=== PATIENT | female | born 1995 | race Caucasian/White ===

== ENCOUNTER 2017-06-21 03:18 | Inpatient (IN) | payer OTHER ==
[2017-06-21] MEDS: Lactated Ringers 1,000 ML IV SCH ×3 (08:00→19:57)
--- NOTE | 2017-06-21 08:12 | PCM.LDHP ---
L&D History of Present Illness - General Date of Service: 06/21/17 Admit Problem/Dx: Admission Diagnosis/Problem Admission Diagnosis/Problem 06/21/17 08:05 40-1/7 week intrauterine , induction of labor Source of Information: Patient History Limitations: Reports: No Limitations - History of Present Illness Introduction:: History of present illness: Patient is a 21-year-old 1 para 0 white female who is admitted for elective induction of labor at 40-1/7 weeks gestational age. Her due date is 06/20/2016 as based upon a ultrasound done at 12- 5/7 weeks. Dating is supported by a second ultrasound that was done on 2016. Cervix is 2+ centimeters, 90% effaced, -2 station, cephalic presentation, mid position to posterior position, very soft. Induction with artificial rupture membranes/possible Pitocin discussed with patient. She appears to understand, wishes to proceed. OB join history 1 para 0 JOSE DAVID 06/20/2017 as above. Patient's care started at approximately 10 weeks gestational age. Ultrasound done at 12 weeks was consistent with her present given due date of 06/20/2017. Patient seen on a regular basis during the course of . Her weight gain was from 211-245 pounds for 35 pound weight gain. Fundal height growth was appropriate. Vital signs are stable throughout the . Patient plans to breast-feed. She is group B strep negative. Her inverted posterior and depression screening score on 02/05/2017 was 3 on a scale 30. He declined genetic evaluation. She desires epidural in labor and delivery. She is rubella nonimmune and therefore is a candidate for MMR after delivery. Patient had her influenza shot on 03/27/2017 and her Tdap on 04/30/2017. labs include blood O+, negative and by screen. Initial hemoglobin is 14.1 and platelets are 339,000 at first visit. Pap smear was normal. She is rubella nonimmune. RPR is nonreactive. Hepatitis B and HIV assays were both negative as were GC and chlamydia tests. Her second trimester labs included hemoglobin of 12.8 g/dL and a platelet count of 319,000. One-hour GTT was normal at 121. Group B strep screen was negative. Past medical history: Unremarkable Past surgical history: Unremarkable Allergies: Amoxicillin tabs which causes a rash, Animal dander Medications: 1. vitamins 1 daily Family history: mother and father are alive and well. 6 brothers 1 with autism. One sister is alive and well. A maternal grandmother is alive and well. Maternal grandfather's health is not known. Paternal grandmother alive with multiple sclerosis. Paternal grandfather history unknown. No bleeding, clotting , and a seizure Precis problems noted in the family. Social history: Patient is . is Marni. She does not use any significant amounts of alcohol, drugs or tobacco. Review of systems: Skin: Negative Cardiovascular: No chest pain or exercise intolerance Respiratory: No shortness of breath or infection symptoms Breasts: Changes since . Patient does plan to breast-feed GI: Negative : Changes associated with Extremities: Occasional mild edema Neurological: Negative Physical exam: General patient is a well-developed, well-nourished, pleasant female of stated age in no acute distress. On first visit weight was 211, height was 5 feet 5 and body mass index is 32.3. On last visit her weight was 245 pounds, blood pressure 126/ 82 and heart rate is 138. Skin is warm dry without lesions. HEENT, neck and back to normal and superior lungs are clear with good breath sounds in all lung rowley. Cardiovascular exam shows regular rhythm without murmurs. Breast exam is deferred had been previously done and found to be normal and first visit Abdomen is protuberant with with fundal height of 39+ centimeters baby in vertex presentation Cervix is 2+ centimeters, 90% effaced, -2 station, mid to posterior position, very soft. Extremity show minimal edema otherwise negative. Neurological exam is within normal limits. Skin is warm and dry without lesions. - Related Data Allergies/Adverse Reactions: Allergies Allergy/AdvReac Type Severity Reaction Status Date / Time amoxicillin Allergy Rash Verified 08/09/16 14:29 Home Medications: Home Meds Acetaminophen/HYDROcodone [[place] 325-5 MG] 1 tab PO Q6H PRN #15 tablet 08/09/16 [Rx] Control 1 tab PO DAILY 08/09/16 [History] Ondansetron [Zofran ODT] 4 mg PO Q6H PRN #15 tab.dis 08/09/16 [Rx] Tamsulosin [Flomax] 0.4 mg PO ONETIME #10 cap.er 08/09/16 [Rx] Past Medical History - Past Health History Medical/Surgical History: Denies Medical/Surgical History Social & Family History - Tobacco Use Smoking Status *Q: Never Smoker - Caffeine Use Caffeine Use: Reports: Soda Other Caffeine Use: occasional - Recreational Drug Use Recreational Drug Use: No H&P Review of Systems - Review of Systems: Review Of Systems: See Below L&D Exam - Exam Exam: See Below Problem List Initiated/Reviewed/Updated: Yes Assessment/Plan Comment:: Assessment: 1. Term intrauterine at 40-1/7 weeks gestational age admitted for elective induction of labor. 2. Low-risk 3. Patient plans to breast-feed 4. Patient is rubella nonimmune therefore is a candidate for MMR after delivery 5. Patient is okay with epidural in labor. Plan: 1. Artificial rupture membranes/Pitocin induction of labor 2. Intermittent monitoring. 3. Epidural patient desires 4. CBC 5. Anticipate normal spontaneous vaginal delivery.
[2017-06-21] MEDS ORDERED: Lidocaine 1% 50 ML MDV INJECT ONE (08:14)
[2017-06-21] MEDS ORDERED: ePHEDrine 50 MG/ML SDV IVPUSH PRN (08:14)
[2017-06-21] MEDS ORDERED: fentaNYL 100 MCG/2 ML SDV EPIDUR PRN (08:14)
[2017-06-21] MEDS ORDERED: Nalbuphine 20 MG/1 ML Amp IVPUSH PRN (08:14)
[2017-06-21] MEDS ORDERED: diphenhydrAMINE 50 MG/ML SDV IVPUSH PRN (08:14)
[2017-06-21] MEDS ORDERED: Ondansetron 4 MG/2 ML SDV IVPUSH PRN (08:14)
[2017-06-21] MEDS ORDERED: Sodium Chloride 0.9% 10 ML Syringe FLUSH PRN (08:14)
[2017-06-21] MEDS ORDERED: Bupivacaine/fentaNYL/NS 100 ML Bag EPIDUR SCH (08:15)
[2017-06-21] MEDS ORDERED: Oxytocin/Lactated Ringers 10 UNIT/1,000 ML BAG IV SCH (08:15)
--- NOTE | 2017-06-21 12:44 | PCM.PREANE ---
Preanesthetic Assessment - Anesthesia/Transfusion/Family Hx Anesthesia History: No Prior Anesthesia Family History of Anesthesia Reaction: No Transfusion History: No Prior Transfusion(s) - Review of Systems General: No Symptoms Pulmonary: No Symptoms Cardiovascular: No Symptoms Gastrointestinal: No Symptoms Neurological: No Symptoms Other: Reports: None - Physical Assessment Pulse: 84 O2 Sat by Pulse Oximetry: 99 Respiratory Rate: 20 Blood Pressure: 119/72 Temperature: 36.3 C Vital Signs: Last Vital Signs Temp 36.6 C 06/21/17 07:30 Pulse 76 06/21/17 07:30 Resp 20 06/21/17 07:30 BP 119/72 06/21/17 07:30 Pulse Ox 99 06/21/17 07:30 Height: 1.65 m Weight: 111.584 kg ASA Class: 2 Mental Status: Alert & Oriented x3 Airway Class: Mallampati = 1 Dentition: Reports: Normal Dentition Thyro-Mental Finger Breadths: 3 Mouth Opening Finger Breadths: 3 ROM/Head Extension: Full Lungs: Clear to Auscultation, Normal Respiratory Effort Cardiovascular: Regular Rate, Regular Rhythm - Lab Values: Laboratory Last Values WBC 10.73 K/mm3 (3.98-10.04) H 06/21/17 09:06 RBC 4.15 M/mm3 (3.98-5.22) 06/21/17 09:06 Hgb 13.1 gm/L (11.2-15.7) 06/21/17 09:06 Hct 37.9 % (34.1-44.9) 06/21/17 09:06 MCV 91.3 fl (79.4-94.8) 06/21/17 09:06 MCH 31.6 pg (25.6-32.2) 06/21/17 09:06 MCHC 34.6 g/dl (32.2-35.5) 06/21/17 09:06 RDW Std Deviation 41.4 fL (36.4-46.3) 06/21/17 09:06 Plt Count 275 K/mm3 (182-369) 06/21/17 09:06 MPV 9.8 fl (9.4-12.3) 06/21/17 09:06 Neut % (Auto) 69.6 % (34.0-71.1) 06/21/17 09:06 Lymph % (Auto) 18.0 % (19.3-51.7) L 06/21/17 09:06 [place] % (Auto) 10.6 % (4.7-12.5) 06/21/17 09:06 Eos % (Auto) 0.8 (0.7-5.8) 06/21/17 09:06 Baso % (Auto) 0.3 % (0.1-1.2) 06/21/17 09:06 Neut # (Auto) 7.47 K/mm3 (1.56-6.13) H 06/21/17 09:06 Lymph # (Auto) 1.93 K/mm3 (1.18-3.74) 06/21/17 09:06 [place] # (Auto) 1.14 K/mm3 (0.24-0.36) H 06/21/17 09:06 Eos # (Auto) 0.09 K/mm3 (0.04-0.36) 06/21/17 09:06 Baso # (Auto) 0.03 K/mm3 (0.01-0.08) 06/21/17 09:06 - Allergies Allergies/Adverse Reactions: Allergies Allergy/AdvReac Type Severity Reaction Status Date / Time amoxicillin Allergy Rash Verified 08/09/16 14:29 - Anesthesia Plan Pre-Op Medication Ordered: None - Acknowledgements Anesthesia Type Planned: Epidural Pt an Appropriate Candidate for the Planned Anesthesia: Yes Alternatives and Risks of Anesthesia Discussed w Pt/Guardian: Yes Pt/Guardian Understands and Agrees with Anesthesia Plan: Yes PreAnesthesia Questionnaire - Past Health History Medical/Surgical History: Denies Medical/Surgical History Gastrointestinal 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: GERD Genitourinary 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: Renal Calculus - SUBSTANCE USE Smoking Status *Q: Never Smoker Second Hand Smoke Exposure: No Days Per Week of Alcohol Use: 0 Number of Drinks Per Day: 0 Total Drinks Per Week: 0 Recreational Drug Use History: No - HOME MEDS Home Medications: Home Meds Acetaminophen/HYDROcodone [[place] 325-5 MG] 1 tab PO Q6H PRN #15 tablet 08/09/16 [Rx] Control 1 tab PO DAILY 08/09/16 [History] Ondansetron [Zofran ODT] 4 mg PO Q6H PRN #15 tab.dis 08/09/16 [Rx] Tamsulosin [Flomax] 0.4 mg PO ONETIME #10 cap.er 08/09/16 [Rx] - CURRENT (IN HOUSE) MEDS Current Meds: Current Medications Diphenhydramine HCl (Benadryl) 25 mg IVPUSH Q6H PRN PRN Reason: Itching Ephedrine Sulfate (Ephedrine Sulfate) 5 mg IVPUSH ASDIRECTED PRN PRN Reason: HYPOTENTSION Fentanyl (Sublimaze) 100 mcg EPIDUR Q3H PRN PRN Reason: PAIN Last Admin: 06/21/17 12:35 Dose: 100 mcg Fentanyl/Bupivacaine HCl (Fentanyl/Bupivacaine/Ns 2 Mcg-0.125% 100 Ml) 100 ml EPIDUR ASDIRECTED CAROLE Last Admin: 06/21/17 12:37 Dose: 100 ml Lactated Ringer's (Ringers, Lactated) 1,000 mls @ 100 mls/hr IV ASDIRECTED CAROLE Last Admin: 06/21/17 08:00 Dose: 100 mls/hr Oxytocin/Lactated Ringer's (Pitocin In Lr 10 Units/1,000 Ml) 10 unit in 1,000 mls @ 12 mls/hr IV TITRATE CAROLE; 2 MUNITS/MIN PRN Reason: Protocol Last Admin: 06/21/17 10:30 Dose: 2 munits/min, 12 mls/hr Nalbuphine HCl (Nubain) 10 mg IVPUSH Q2H PRN PRN Reason: Pain (moderate 4-6) Ondansetron HCl (Zofran) 4 mg IVPUSH Q4H PRN PRN Reason: Nausea/Vomiting Sodium Chloride (Saline Flush) 10 ml FLUSH ASDIRECTED PRN PRN Reason: Keep Vein Open Discontinued Medications Lidocaine HCl (Xylocaine 1%) 10 ml INJECT ONETIME ONE Stop: 06/21/17 08:15
--- NOTE | 2017-06-21 21:06 | PCM.SN ---
- Free Text/Narrative Note: 2049 called to room for c/o pain epidural at T10 bolus with 10ml of .25% bupivacine VSS level noted to T6 out room at 2108
[2017-06-22] MEDS: Lactated Ringers 1,000 ML IV SCH (00:08)
--- NOTE | 2017-06-22 03:45 | PCM.SN ---
- Free Text/Narrative Note: Lana is a 21-year-old 1 now para 1001 white female who is admitted on 06/21/2017 for elective induction of labor at 39+ weeks gestational age. She underwent artificial rupture of membranes initially and was augmented with Pitocin. She made steady progress until cervical dilation at approximately 0120 hrs. on 06/22/2017. She pushed for approximately 2 hours and at 0323 hrs. on 2017 patient delivered a viable, mccarty, female infant in an occiput anterior position. Baby weighed 3640 g (8 pounds 0.4 ounces), had Apgars of 8 and 9 and length of 19-3/4 inches. There was a small superficial perineal laceration which required 1 [id number] suture. Patient had an epidural for analgesia and this was adequate for the repair of the laceration. Placenta delivered at 0330 hrs. in a Pedroza presentation. It appeared intact, complete and was discarded per patient desire. Estimated blood loss was approximately 400 mL's. Methergine 0.2 mg IM was given to facilitate increase in uterine tone Patient plans to nurse. Epidural catheter was removed after delivery. Pitocin was given continuously after delivery of the baby to facilitate increase in uterine tone and reduce risk of bleeding. Condition: Good
[2017-06-22] MEDS ORDERED: Bupivacaine 0.25% 10 ML SDV ONE (04:00)
[2017-06-22] MEDS ORDERED: Misoprostol 200 MCG Tab ONE (04:00)
[2017-06-22] MEDS ORDERED: Ondansetron 4 MG/2 ML SDV IVPUSH PRN (04:00)
[2017-06-22] MEDS ORDERED: Acetaminophen 325 MG Tab PO PRN (04:07)
[2017-06-22] MEDS ORDERED: Methylergonovine 0.2 MG/1 ML Amp IM PRN (04:07)
[2017-06-22] MEDS ORDERED: Docusate Sodium 100 MG Cap PO PRN (04:07)
[2017-06-22] MEDS ORDERED: Ibuprofen 600 MG Tab PO PRN (04:07)
[2017-06-22] MEDS ORDERED: Lanolin 100% Cream 7 GM Tube TOP PRN (04:07)
[2017-06-22] MEDS: Misoprostol 200 MCG Tab PO SCH ×2 (04:10→10:47)
[2017-06-22] MEDS ORDERED: Ondansetron 4 MG/2 ML SDV ONE (04:10)
[2017-06-22] MEDS ORDERED: Oxytocin/Lactated Ringers 10 UNIT/1,000 ML BAG IV ONE (04:19)
[2017-06-22] MEDS: Benzocaine/Menthol 20%-0.5% Spray 56 GM Canister TOP PRN ×2 (07:16→23:11)
[2017-06-22] MEDS: Witch Hazel Medicated Pads 100/Jar TOP PRN ×2 (07:17→23:11)
--- NOTE | 2017-06-22 08:38 | PCM48HPAN ---
Post Anesthesia Note - EVALUATION WITHIN 48HRS OF ANESTHETIC Vital Signs in Normal Range: Yes Patient Participated in Evaluation: Yes Respiratory Function Stable: Yes Airway Patent: Yes Cardiovascular Function Stable: Yes Hydration Status Stable: Yes Pain Control Satisfactory: Yes Nausea and Vomiting Control Satisfactory: Yes Mental Status Recovered: Yes
[2017-06-23] MEDS ORDERED: Measles, Mumps & Rubella Vaccine 0.5 ML SDV SUBCUT ONE (04:06)
--- NOTE | 2017-06-23 07:32 | PCM.DCSUM1 ---
Discharge Summary - Hospital Course Free Text/Narrative:: Lana is a 21-year-old 1 now para 1001 white female who was admitted on 06/21/2017 for elective induction of labor at 39+ weeks gestational age. She underwent artificial rupture of membranes initially and was augmented with Pitocin. She made steady progress until cervical dilation at approximately 0120 hrs. on 06/22/2017. She pushed for approximately 2 hours and at 0323 hrs. on 2017 patient delivered a viable, mccarty, female infant in an occiput anterior position. Baby weighed 3640 g (8 pounds 0.4 ounces), had Apgars of 8 and 9 and length of 19-3/4 inches. There was a small superficial perineal laceration which required 1 [id number] suture. Patient had an epidural for analgesia and this was adequate for the repair of the laceration. Placenta delivered at 0330 hrs. in a Pedroza presentation. It appeared intact, complete and was discarded per patient desire. Estimated blood loss was approximately 400 mL's. Methergine 0.2 mg IM was given to facilitate increase in uterine tone Patient plans to nurse. Epidural catheter was removed after delivery. Pitocin was given continuously after delivery of the baby to facilitate increase in uterine tone and reduce risk of bleeding. patient is done well. Her vital signs and stable. She is voiding well , ambulating without problems and nursing without concerns. Her lochia is minimal. Patient is desiring to go home today. Follow-up CBC shows white count of 13.09, hemoglobin 10.4 and platelets of 271, 000. These are normal for the period Condition: Good - Discharge Data Discharge Date: 06/23/17 Discharge Disposition: DC/Tfer to [facility] Condition: Good - Patient Instructions Diet: Regular Diet as Tolerated (Nursing diet with increased calcium and calories as recommended) Activity: As Tolerated (No intercourse or tampons until bleeding resolves.) Driving: May Drive Today Showering/Bathing: May Shower Showering/Bathing, Other: May take a bath Notify Provider of: Fever, Increased Pain, Swelling and Redness, Nausea and/or Vomiting - Discharge Plan Home Medications: Home Meds Acetaminophen [Tylenol] 650 mg PO Q4H PRN tablet 06/23/17 [Rx] Ibuprofen [IJD: Ibuprofen] 600 mg PO Q4H PRN tablet 06/23/17 [Rx] Referrals: Bro Santana MD [Primary Care Provider] - (Return to clinicDr. Santana2 weeks.) - Discharge Summary/Plan Comment DC Time >30 min.: No Discharge Summary/Plan Comment: Discharge instructions: 1. Discharge home 2. Diet, activity and follow-up discussed with patient. Recommend nursing diet with increased calories and calcium. 3. Precautions given concern increased pain, bleeding, temperature, signs/ symptoms of DVT/PE. 4. Medications per home medication was printed, discussed with and given to the patient. 5. Return to clinic-Dr. Santana-[facility] in 2 weeks. Diagnosis: Term -delivered Condition: Good - Patient Data Vitals - Most Recent: Last Vital Signs Temp 36.5 C 06/22/17 22:57 Pulse 86 06/22/17 22:57 Resp 14 06/22/17 10:56 BP 129/68 06/22/17 22:57 Pulse Ox 96 06/22/17 22:57 Weight - Most Recent: 111.584 kg I&O - Last 24 hours: Intake & Output 06/22/17 06/23/17 06/23/17 22:59 06:59 14:59 Intake Total 320 Balance 320 Lab Results - Last 24 hrs: Laboratory Results - last 24 hr 06/23/17 Range/Units 06:19 WBC 13.09 H (3.98-10.04) K/mm3 RBC 3.26 L (3.98-5.22) M/mm3 Hgb 10.4 L (11.2-15.7) gm/L Hct 30.7 L (34.1-44.9) % MCV 94.2 (79.4-94.8) fl MCH 31.9 (25.6-32.2) pg MCHC 33.9 (32.2-35.5) g/dl RDW Std Deviation 42.8 (36.4-46.3) fL Plt Count 271 (182-369) K/mm3 MPV 9.9 (9.4-12.3) fl Med Orders - Current: Current Medications Acetaminophen (Tylenol) 650 mg PO Q4H PRN PRN Reason: mild pain or fever Benzocaine/Menthol (Dermoplast Pain Relief Fortesc[place]) 0 gm TOP ASDIRECTED PRN PRN Reason: Perineal Comfort Measure Last Admin: 06/22/17 23:11 Dose: 1 canister Docusate Sodium (Colace) 100 mg PO BID PRN PRN Reason: Constipation Emollient Ointment (Lansinoh Hpa) 0 gm TOP ASDIRECTED PRN PRN Reason: Sore Nipples Ibuprofen (Motrin) 600 mg PO Q4H PRN PRN Reason: Mild pain or fever Methylergonovine Maleate (Methergine) 0.2 mg IM ONETIME PRN PRN Reason: Excessive Vaginal Bleeding Last Admin: 06/22/17 03:28 Dose: 0.2 mg Ondansetron HCl (Zofran) 4 mg IVPUSH Q4H PRN PRN Reason: Nausea/Vomiting Last Admin: 06/22/17 04:10 Dose: 4 mg Witch Mame (Tucks) 1 pad TOP ASDIRECTED PRN PRN Reason: Hemorrhoid pain Last Admin: 06/22/17 23:11 Dose: 1 canister Discontinued Medications Bupivacaine HCl (Sensorcaine-Mpf 0.25%) [address]-MED ONE Stop: 06/22/17 04:01 Diphenhydramine HCl (Benadryl) 25 mg IVPUSH Q6H PRN PRN Reason: Itching Ephedrine Sulfate (Ephedrine Sulfate) 5 mg IVPUSH ASDIRECTED PRN PRN Reason: HYPOTENTSION Fentanyl (Sublimaze) 100 mcg EPIDUR Q3H PRN PRN Reason: PAIN Last Admin: 06/21/17 12:35 Dose: 100 mcg Fentanyl/Bupivacaine HCl (Fentanyl/Bupivacaine/Ns 2 Mcg-0.125% 100 Ml) 100 ml EPIDUR ASDIRECTED CAROLE Last Admin: 06/21/17 12:37 Dose: 100 ml Lactated Ringer's (Ringers, Lactated) 1,000 mls @ 100 mls/hr IV ASDIRECTED CAROLE Last Admin: 06/22/17 00:08 Dose: 100 mls/hr Oxytocin/Lactated Ringer's (Pitocin In Lr 10 Units/1,000 Ml) 10 unit in 1,000 mls @ 12 mls/hr IV TITRATE CAROLE; 2 MUNITS/MIN PRN Reason: Protocol Last Titration: 06/22/17 03:20 Dose: 500 mls/hr Oxytocin/Lactated Ringer's (Pitocin In Lr 10 Units/1,000 Ml) Confirm Administered Dose 10 unit in 1,000 mls @ as directed IV .STK-MED ONE Stop: 06/22/17 04:20 Last Admin: 06/22/17 07:18 Dose: Not Given Lidocaine HCl (Xylocaine 1%) 10 ml INJECT ONETIME ONE Stop: 06/21/17 08:15 Measles/Mumps/Rubella Vaccine Live (M-M-R Ii Vaccine) 0.5 ml SUBCUT .ONCE ONE Stop: 06/23/17 04:07 Last Admin: 06/23/17 04:25 Dose: 0.5 ml Misoprostol (Cytotec) 600 mcg PO Q6H CAROLE Stop: 06/22/17 10:01 Last Admin: 06/22/17 10:47 Dose: 600 mcg Misoprostol (Cytotec) 600 mcg .ROUTE .STK-MED ONE Stop: 06/22/17 04:01 Nalbuphine HCl (Nubain) 10 mg IVPUSH Q2H PRN PRN Reason: Pain (moderate 4-6) Ondansetron HCl (Zofran) 4 mg IVPUSH Q4H PRN PRN Reason: Nausea/Vomiting Last Admin: 06/21/17 13:31 Dose: 4 mg Ondansetron HCl (Zofran) Confirm Administered Dose 4 mg .ROUTE .STK-MED ONE Stop: 06/22/17 04:11 Last Admin: 06/22/17 07:18 Dose: Not Given Sodium Chloride (Saline Flush) 10 ml FLUSH ASDIRECTED PRN PRN Reason: Keep Vein Open *Q Meaningful Use (DIS) - VTE *Q VTE Criteria *Q: - Stroke *Q Stroke Criteria *Q: - AMI *Q AMI Criteria *Q:
[2017-06-23 14:51] VITALS: BP 132/79
[2017-06-23] MEDS: Witch Hazel Medicated Pads 100/Jar TOP PRN (18:48)
[2017-06-23] MEDS: Benzocaine/Menthol 20%-0.5% Spray 56 GM Canister TOP PRN (18:48)
== END 2017-06-23 18:30 | DRG 775 ==
LOC: JD.OB 03:18 → OBSVTOIN 06-22 03:18
PROVIDERS: ADMIT Obstetrics & Gynecology; ATTEND Obstetrics & Gynecology
PROC: 10E0XZZ Delivery of Products of Conception, External Approach (ICD-10-PCS; principal; 2017-06-22)
PROC: 10907ZC Drainage of Amniotic Fluid, Therapeutic from Products of Conception, Via Natural or Artificial Opening (ICD-10-PCS; 2017-06-22)
PROC: 0HQ9XZZ Repair Perineum Skin, External Approach (ICD-10-PCS; 2017-06-22)
PROC: 00HU33Z Insertion of Infusion Device into Spinal Canal, Percutaneous Approach (ICD-10-PCS; 2017-06-22)
PROC: 3E0R3BZ Introduction of Anesthetic Agent into Spinal Canal, Percutaneous Approach (ICD-10-PCS; 2017-06-22)
DX: O70.0 First degree perineal laceration during delivery (principal); Z3A.40 40 weeks gestation of pregnancy; Z37.0 Single live birth; Z88.1 Allergy status to other antibiotic agents
CPT/HCPCS: 36415; 51702; 59300; 59409; 85025; 85027; 90471; 90707; A9270-GY; J2210; J2405; J2590; J3010; J7120

== ENCOUNTER 2019-08-24 10:07 | Inpatient (IN) | payer OTHER ==
[~2019-08-24 10:07] MED LIST: Bupivacaine 0.25% 10 ML SDV ONE
[2019-08-24] MEDS ORDERED: Sodium Chloride 0.9% 10 ML Syringe FLUSH PRN (10:32)
[2019-08-24] MEDS ORDERED: Ondansetron 4 MG/2 ML SDV IVPUSH PRN (10:32)
[2019-08-24] MEDS ORDERED: Oxytocin/Lactated Ringers 10 UNIT/1,000 ML BAG IV SCH ×2 (10:45→11:30)
[2019-08-24] MEDS: Lactated Ringers 1,000 ML IV SCH ×3 (12:05→15:24)
--- NOTE | 2019-08-24 13:22 | PCM.LDHP ---
L&D History of Present Illness - General Date of Service: 08/24/19 Admit Problem/Dx: Patient Status Order with Admit Dx/Problem 08/24/19 10:32 Patient Status [ADT] Routine Admission Diagnosis/Problem Admission Diagnosis/Problem Source of Information: Patient History Limitations: Reports: No Limitations - History of Present Illness Introduction:: 23 year old female at 39w1 by LMP c/w multiple ultrasounds here for SROM. This occurred at home at 8 am on the day of admission. PNC with Dr. Santana without significant complications. Records reviewed. - Related Data Allergies/Adverse Reactions: Allergies Allergy/AdvReac Type Severity Reaction Status Date / Time amoxicillin Allergy Rash Verified 08/24/19 10:14 Home Medications: Home Meds Loperamide [Imodium] 2 mg PO 08/24/19 [History] Vits #93/Iron Fum/FA [ Formula Tablet] 1 each PO 08/24/19 [ History] Past Medical History - Past Health History Medical/Surgical History: Denies Medical/Surgical History HEENT 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: Impaired Vision, Other (See Below) Other HEENT History: wears glasses Gastrointestinal 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: Hemorrhoids, Other (See Below) Other Gastrointestinal History: frequent loose stools Genitourinary 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: Renal Calculus 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: , 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 - Past Surgical History HEENT Surgical 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: Oral Surgery Social & Family History - Family History Family Medical History: Noncontributory - Tobacco Use Smoking Status *Q: Never Smoker - Caffeine Use Caffeine Use: Reports: Soda Other Caffeine Use: occasional - Recreational Drug Use Recreational Drug Use: No H&P Review of Systems - Review of Systems: Review Of Systems: See Below General: Reports: No Symptoms HEENT: Reports: No Symptoms Pulmonary: Reports: No Symptoms Cardiovascular: Reports: No Symptoms Gastrointestinal: Reports: No Symptoms Genitourinary: Reports: No Symptoms Musculoskeletal: Reports: No Symptoms Skin: Reports: No Symptoms Psychiatric: Reports: No Symptoms Neurological: Reports: No Symptoms Hematologic/Lymphatic: Reports: No Symptoms Immunologic: Reports: No Symptoms L&D Exam - Exam Exam: See Below - Vital Signs Vital Signs: Last Vital Signs Temp 36.3 C 08/24/19 10:14 Pulse 102 H 08/24/19 10:14 Resp 14 03/08/20 10:14 BP 118/53 L 03/08/20 10:14 Pulse Ox 99 08/24/19 10:14 Weight: 119.975 kg - OB Specific Contraction Intensity: Mild to Moderate Movement: Active Heart Tones: Present Heart Tones per Min: 145 Heart Rate (FHR) Variability: Moderate (6-25 bmp) Presentation: Vertex - Exam General: Alert, Oriented HEENT: PERRLA, Conjunctiva Clear, EACs Clear, EOMI, Hearing Intact, Mucosa Moist & [place], Nares Patent, Normal Nasal Septum, Posterior Pharynx Clear, TMs Clear Neck: Supple, Trachea Midline Lungs: Clear to Auscultation, Normal Respiratory Effort Cardiovascular: Regular Rate, Regular Rhythm GI/Abdominal Exam: Normal Bowel Sounds, Soft, Non-Tender, No Organomegaly, No Distention, No Abnormal Bruit, No Mass, Pelvis Stable Back Exam: Normal Inspection, Full Range of Motion Extremities: Normal Inspection, Normal Range of Motion, Non-Tender, No Pedal Edema, Normal Capillary Refill Skin: Warm, Dry, Intact Neurological: Cranial Nerves Intact, Reflexes Equal Bilateral Psychiatric: Alert, Normal Affect, Normal Mood - Patient Data Lab Results Last 24 hrs: Laboratory Results - last 24 hr 08/24/19 08/24/19 Range/Units 11:33 11:33 WBC 6.98 (3.98-10.04) K/mm3 RBC 4.21 (3.98-5.22) M/mm3 Hgb 13.0 (11.2-15.7) gm/dl Hct 38.5 (34.1-44.9) % MCV 91.4 (79.4-94.8) fl MCH 30.9 (25.6-32.2) pg MCHC 33.8 (32.2-35.5) g/dl RDW Std Deviation 40.9 (36.4-46.3) fL Plt Count 353 (182-369) K/mm3 MPV 9.8 (9.4-12.3) fl Neut % (Auto) 54.4 (34.0-71.1) % Lymph % (Auto) 31.5 (19.3-51.7) % Kay % (Auto) 12.3 (4.7-12.5) % Eos % (Auto) 0.7 (0.7-5.8) Baso % (Auto) 0.4 (0.1-1.2) % Neut # (Auto) 3.79 (1.56-6.13) K/mm3 Lymph # (Auto) 2.20 (1.18-3.74) K/mm3 Kay # (Auto) 0.86 H (0.24-0.36) K/mm3 Eos # (Auto) 0.05 (0.04-0.36) K/mm3 Baso # (Auto) 0.03 (0.01-0.08) K/mm3 Blood Type O POSITIVE Gel Antibody Screen Negative Result Diagrams: 08/24/19 11:33 Problem List Initiated/Reviewed/Updated: Yes Orders Last 24hrs: Active Orders 24 hr Category Date Time Status Patient Status [ADT] Routine ADT 08/24/19 10:32 Active Activity as Tolerated [RC] PFP Care 08/24/19 10:32 Active Communication Order [RC] ASDIRECTED Care 08/24/19 10:32 Active Heart Tones [RC] ASDIRECTED Care 08/24/19 10:32 Active Non Stress Test [RC] PER UNIT ROUTINE Care 08/24/19 10:32 Active Notify Provider [RC] PFP Care 08/24/19 10:32 Active Notify Provider [RC] PRN Care 08/24/19 10:32 Active PCEA Epidural [RC] ASDIRECTED Care 08/24/19 10:38 Active Peripheral IV Care [RC] . DIRECTED Care 08/24/19 10:32 Active Vital Signs [RC] PER UNIT ROUTINE Care 08/24/19 10:32 Active Regular Diet [DIET] Diet 08/24/19 Breakfast Active RAPID PLASMA REAGIN,RPR [CHEM] Routine Lab 08/24/19 11:33 Received Lactated Ringers [Ringers, Lactated] 1,000 ml Med 08/24/19 10:45 Active IV ASDIRECTED Ondansetron [Zofran] Med 08/24/19 10:32 Active 4 mg IVPUSH Q4H PRN Oxytocin/Lactated Ringers [Pitocin in LR 10 Units/1,000 Med 08/24/19 10:45 Active ML] 10 unit in 1,000 ml IV .CONTINUOUS Oxytocin/Lactated Ringers [Pitocin in LR 10 Units/1,000 Med 08/24/19 11:30 Active ML] 10 unit in 1,000 ml IV TITRATE Sodium Chloride 0.9% [Saline Flush] Med 08/24/19 10:32 Active 10 ml FLUSH ASDIRECTED PRN Electronic Heart Tones Ext w TOCO [WOMSER] Oth 08/24/19 10:32 Ordered Routine Electronic Heart Tones Internal [WOMSER] Per Unit Oth 08/24/19 10:32 Ordered Routine Peripheral IV Insertion Adult [OM.PC] Routine Oth 08/24/19 10:32 Ordered Resuscitation Status Routine Resus Stat 08/24/19 10:32 Ordered Medication Orders Lactated Ringer's (Ringers, Lactated) 1,000 mls @ 100 mls/hr IV ASDIRECTED CAROLE Last Admin: 08/24/19 12:05 Dose: 100 mls/hr Oxytocin/Lactated Ringer's (Pitocin In Lr 10 Units/1,000 Ml) 10 unit in 1,000 mls @ 500 mls/hr IV .CONTINUOUS CAROLE Oxytocin/Lactated Ringer's (Pitocin In Lr 10 Units/1,000 Ml) 10 unit in 1,000 mls @ 12 mls/hr IV TITRATE CAROLE; Protocol Last Titration: 08/24/19 12:45 Dose: 4 munits/min, 24 mls/hr Admin: 08/24/19 12:06 Dose: 2 munits/min, 12 mls/hr Ondansetron HCl (Zofran) 4 mg IVPUSH Q4H PRN PRN Reason: Nausea/Vomiting Sodium Chloride (Saline Flush) 10 ml FLUSH ASDIRECTED PRN PRN Reason: Keep Vein Open Assessment/Plan Comment:: Term labor with SROM.
[2019-08-24] MEDS ORDERED: Bupivacaine/fentaNYL/NS 100 ML Bag EPIDUR PRN (15:08)
[2019-08-24] MEDS ORDERED: fentaNYL 100 MCG/2 ML SDV EPIDUR PRN (15:08)
[2019-08-24] MEDS ORDERED: ePHEDrine 50 MG/ML SDV IVPUSH PRN (15:08)
[2019-08-24] MEDS ORDERED: diphenhydrAMINE 50 MG/ML SDV IVPUSH PRN (15:08)
--- NOTE | 2019-08-24 15:40 | PCM.PREANE ---
Preanesthetic Assessment - Procedure Proposed Procedure: epidural - Anesthesia/Transfusion/Family Hx Anesthesia History: Prior Anesthesia Without Reaction Family History of Anesthesia Reaction: No Transfusion History: No Prior Transfusion(s) - Review of Systems General: Fatigue Pulmonary: No Symptoms Cardiovascular: No Symptoms Gastrointestinal: Abdominal Pain (labor) Neurological: No Symptoms Other: Reports: None - Physical Assessment Vital Signs: Last Vital Signs Temp 36.3 C 08/24/19 10:14 Pulse 102 H 08/24/19 10:14 Resp 14 08/24/19 10:14 BP 118/53 L 08/24/19 10:14 Pulse Ox 99 08/24/19 10:14 Height: 1.65 m Weight: 119.975 kg ASA Class: 2 Mental Status: Alert & Oriented x3 Airway Class: Mallampati = 1 Dentition: Reports: Normal Dentition Thyro-Mental Finger Breadths: 3 Mouth Opening Finger Breadths: 3 ROM/Head Extension: Full Lungs: Clear to Auscultation, Normal Respiratory Effort Cardiovascular: Regular Rate, Regular Rhythm - Lab Values: Laboratory Last Values WBC 6.98 K/mm3 (3.98-10.04) 08/24/19 11:33 RBC 4.21 M/mm3 (3.98-5.22) 08/24/19 11:33 Hgb 13.0 gm/dl (11.2-15.7) 08/24/19 11:33 Hct 38.5 % (34.1-44.9) 08/24/19 11:33 MCV 91.4 fl (79.4-94.8) 08/24/19 11:33 MCH 30.9 pg (25.6-32.2) 08/24/19 11:33 MCHC 33.8 g/dl (32.2-35.5) 08/24/19 11:33 RDW Std Deviation 40.9 fL (36.4-46.3) 08/24/19 11:33 Plt Count 353 K/mm3 (182-369) 08/24/19 11:33 MPV 9.8 fl (9.4-12.3) 08/24/19 11:33 Neut % (Auto) 54.4 % (34.0-71.1) 08/24/19 11:33 Lymph % (Auto) 31.5 % (19.3-51.7) 08/24/19 11:33 [place] % (Auto) 12.3 % (4.7-12.5) 08/24/19 11:33 Eos % (Auto) 0.7 (0.7-5.8) 08/24/19 11:33 Baso % (Auto) 0.4 % (0.1-1.2) 08/24/19 11:33 Neut # (Auto) 3.79 K/mm3 (1.56-6.13) 08/24/19 11:33 Lymph # (Auto) 2.20 K/mm3 (1.18-3.74) 08/24/19 11:33 [place] # (Auto) 0.86 K/mm3 (0.24-0.36) H 08/24/19 11:33 Eos # (Auto) 0.05 K/mm3 (0.04-0.36) 08/24/19 11:33 Baso # (Auto) 0.03 K/mm3 (0.01-0.08) 08/24/19 11:33 Blood Type O POSITIVE 08/24/19 11:33 Gel Antibody Screen Negative 08/24/19 11:33 - Allergies Allergies/Adverse Reactions: Allergies Allergy/AdvReac Type Severity Reaction Status Date / Time amoxicillin Allergy Rash Verified 08/24/19 10:14 - Anesthesia Plan Pre-Op Medication Ordered: None - Acknowledgements Anesthesia Type Planned: Epidural Pt an Appropriate Candidate for the Planned Anesthesia: Yes Alternatives and Risks of Anesthesia Discussed w Pt/Guardian: Yes Pt/Guardian Understands and Agrees with Anesthesia Plan: Yes PreAnesthesia Questionnaire - Past Health History Medical/Surgical History: Denies Medical/Surgical History HEENT 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: Impaired Vision, Other (See Below) Other HEENT History: wears glasses Gastrointestinal 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: GERD, Hemorrhoids, Other (See Below) Other Gastrointestinal History: frequent loose stools Genitourinary 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: Renal Calculus 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: , 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 - Past Surgical History HEENT Surgical 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: Oral Surgery - SUBSTANCE USE Smoking Status *Q: Never Smoker Recreational Drug Use History: No - HOME MEDS Home Medications: Home Meds Loperamide [Imodium] 2 mg PO 08/24/19 [History] Vits #93/Iron Fum/FA [ Formula Tablet] 1 each PO 08/24/19 [ History] - CURRENT (IN HOUSE) MEDS Current Meds: Current Medications Diphenhydramine HCl (Benadryl) 25 mg IVPUSH Q6H PRN PRN Reason: Itching Ephedrine Sulfate (Ephedrine Sulfate) 5 mg IVPUSH ASDIRECTED PRN PRN Reason: HYPOTENTSION Fentanyl (Sublimaze) 100 mcg EPIDUR Q3H PRN PRN Reason: Pain Last Admin: 08/24/19 15:23 Dose: 100 mcg Fentanyl/Bupivacaine HCl (Fentanyl/Bupivacaine/Ns 2 Mcg-0.125% 100 Ml) 100 ml EPIDUR CONTINUOUS PRN PRN Reason: Pain Last Admin: 08/24/19 15:31 Dose: 100 ml Lactated Ringer's (Ringers, Lactated) 1,000 mls @ 100 mls/hr IV ASDIRECTED CAROLE Last Admin: 08/24/19 15:24 Dose: 100 mls/hr Oxytocin/Lactated Ringer's (Pitocin In Lr 10 Units/1,000 Ml) 10 unit in 1,000 mls @ 500 mls/hr IV .CONTINUOUS CAROLE Oxytocin/Lactated Ringer's (Pitocin In Lr 10 Units/1,000 Ml) 10 unit in 1,000 mls @ 12 mls/hr IV TITRATE CAROLE; Protocol Last Titration: 08/24/19 14:32 Dose: 7 munits/min, 42 mls/hr Ondansetron HCl (Zofran) 4 mg IVPUSH Q4H PRN PRN Reason: Nausea/Vomiting Sodium Chloride (Saline Flush) 10 ml FLUSH ASDIRECTED PRN PRN Reason: Keep Vein Open
--- NOTE | 2019-08-24 19:53 | PCM.SN ---
- Free Text/Narrative Note: Stage I - Patient presented with SROM. Minimal contractions. Augmented with pitocin. Epidural anesthesia. Progressed to complete with overall reassuring FHT. Stage II - of viable male. Weight pending/ 8/9 APGARS at 1932. Head delivered in controlled manner over intact perineum. Body and shoulders atraumatically. To maternal abdomen. Cord clamped and cut. Stage III - of intact placenta 1934. 3vc. No laceration. EBL 150.
[2019-08-24] MEDS ORDERED: Ibuprofen 600 MG Tab PO PRN (21:25)
[2019-08-24] MEDS ORDERED: Witch Hazel Medicated Pads 40/Jar TOP PRN (21:25)
[2019-08-24] MEDS ORDERED: Docusate Sodium 100 MG Cap PO PRN (21:25)
--- NOTE | 2019-08-25 10:15 | PCM.PNPP ---
- General Info Date of Service: 08/25/19 Functional Status: Reports: Pain Controlled - Review of Systems General: Reports: No Symptoms HEENT: Reports: No Symptoms Pulmonary: Reports: No Symptoms Cardiovascular: Reports: No Symptoms Gastrointestinal: Reports: No Symptoms Genitourinary: Reports: No Symptoms Musculoskeletal: Reports: No Symptoms Skin: Reports: No Symptoms Neurological: Reports: No Symptoms Psychiatric: Reports: No Symptoms - General Info Date of Service: 08/25/19 - Patient Data Vital Signs - Most Recent: Last Vital Signs Temp 36.6 C 08/25/19 08:15 Pulse 75 08/25/19 08:15 Resp 16 08/25/19 08:15 BP 123/77 08/25/19 08:15 Pulse Ox 97 08/25/19 08:15 Weight - Most Recent: 119.975 kg I&O - Last 24 Hours: Intake & Output 08/24/19 08/25/19 08/25/19 22:59 06:59 14:59 Intake Total 3850 Output Total 200 Balance 3650 Lab Results - Last 24 Hours: Laboratory Results - last 24 hr 08/24/19 08/24/19 08/24/19 Range/Units 11:33 11:33 11:33 WBC 6.98 (3.98-10.04) K/mm3 RBC 4.21 (3.98-5.22) M/mm3 Hgb 13.0 (11.2-15.7) gm/dl Hct 38.5 (34.1-44.9) % MCV 91.4 (79.4-94.8) fl MCH 30.9 (25.6-32.2) pg MCHC 33.8 (32.2-35.5) g/dl RDW Std Deviation 40.9 (36.4-46.3) fL Plt Count 353 (182-369) K/mm3 MPV 9.8 (9.4-12.3) fl Neut % (Auto) 54.4 (34.0-71.1) % Lymph % (Auto) 31.5 (19.3-51.7) % [place] % (Auto) 12.3 (4.7-12.5) % Eos % (Auto) 0.7 (0.7-5.8) Baso % (Auto) 0.4 (0.1-1.2) % Neut # (Auto) 3.79 (1.56-6.13) K/mm3 Lymph # (Auto) 2.20 (1.18-3.74) K/mm3 [place] # (Auto) 0.86 H (0.24-0.36) K/mm3 Eos # (Auto) 0.05 (0.04-0.36) K/mm3 Baso # (Auto) 0.03 (0.01-0.08) K/mm3 RPR Non-reactive (NONREACTIVE) Blood Type O POSITIVE Gel Antibody Screen Negative Med Orders - Current: Current Medications Docusate Sodium (Colace) 100 mg PO BID PRN PRN Reason: Constipation Ibuprofen (Motrin) 600 mg PO Q6H PRN PRN Reason: Mild pain or fever Witch Mray (Tucks) 1 pad TOP ASDIRECTED PRN PRN Reason: Pain Discontinued Medications Bupivacaine HCl (Sensorcaine-Mpf 0.25%) 10 ml .ROUTE .STK-MED ONE Stop: 08/24/19 00:01 Diphenhydramine HCl (Benadryl) 25 mg IVPUSH Q6H PRN PRN Reason: Itching Ephedrine Sulfate (Ephedrine Sulfate) 5 mg IVPUSH ASDIRECTED PRN PRN Reason: HYPOTENTSION Fentanyl (Sublimaze) 100 mcg EPIDUR Q3H PRN PRN Reason: Pain Last Admin: 08/24/19 15:23 Dose: 100 mcg Fentanyl/Bupivacaine HCl (Fentanyl/Bupivacaine/Ns 2 Mcg-0.125% 100 Ml) 100 ml EPIDUR CONTINUOUS PRN PRN Reason: Pain Last Admin: 08/24/19 15:31 Dose: 100 ml Lactated Ringer's (Ringers, Lactated) 1,000 mls @ 100 mls/hr IV ASDIRECTED CAROLE Last Admin: 08/24/19 15:24 Dose: 100 mls/hr Oxytocin/Lactated Ringer's (Pitocin In Lr 10 Units/1,000 Ml) 10 unit in 1,000 mls @ 500 mls/hr IV .CONTINUOUS CAROLE Last Admin: 08/24/19 20:21 Dose: 999 mls/hr Oxytocin/Lactated Ringer's (Pitocin In Lr 10 Units/1,000 Ml) 10 unit in 1,000 mls @ 12 mls/hr IV TITRATE CAROLE; Protocol Last Titration: 08/24/19 19:33 Dose: 999 mls/hr Ondansetron HCl (Zofran) 4 mg IVPUSH Q4H PRN PRN Reason: Nausea/Vomiting Sodium Chloride (Saline Flush) 10 ml FLUSH ASDIRECTED PRN PRN Reason: Keep Vein Open - Interaction Support Person: - Recovery Exam Fundal Tone: Firm Fundal Level: At Umbilicus Fundal Placement: Midline Lochia Amount: Moderate Lochia Color: Rubra/Red Bladder Status: Voiding - Exam General: Alert, Oriented HEENT: Pupils Equal Neck: Supple Lungs: Clear to Auscultation, Normal Respiratory Effort Cardiovascular: Regular Rate, Regular Rhythm GI/Abdominal Exam: Normal Bowel Sounds, Soft, Non-Tender, No Organomegaly, No Distention, No Abnormal Bruit, No Mass, Pelvis Stable Extremities: Normal Inspection, Normal Range of Motion, Non-Tender, No Pedal Edema, Normal Capillary Refill Neurological: No New Focal Deficit - Problem List Review Problem List Initiated/Reviewed/Updated: Yes - My Orders Last 24 Hours: My Active Orders 08/24/19 10:32 Vital Signs [RC] PER UNIT ROUTINE Resuscitation Status Routine 08/24/19 21:25 Activity as Tolerated [RC] PER UNIT ROUTINE Vital Signs [RC] 03,,15,21 Docusate Sodium [Colace] 100 mg PO BID PRN Ibuprofen [Motrin] 600 mg PO Q6H PRN witch Mary [Tucks] 1 pad TOP ASDIRECTED PRN Assess Lochia [WOMSER] Per Unit Routine Assess Uterine Involution [WOMSER] Per Unit Routine Breast Pump [WOMSER] Per Unit Routine Heat Therapy [OM.PC] PRN Medication Administration Instruction [OM.PC] Routine Perineal Care [OM.PC] Per Unit Routine Sitz Bath [OM.PC] Per Unit Routine 08/25/19 21:25 Heat Therapy [OM.PC] PRN 08/25/19 Lunch Regular Diet [DIET] - Assessment Assessment:: day 1 Discharge tomorrow. - Plan Plan:: Term labor with SROM.
--- NOTE | 2019-08-25 15:12 | PCM48HPAN ---
Post Anesthesia Note - EVALUATION WITHIN 48HRS OF ANESTHETIC Vital Signs in Normal Range: Yes Patient Participated in Evaluation: Yes Respiratory Function Stable: Yes Airway Patent: Yes Cardiovascular Function Stable: Yes Hydration Status Stable: Yes Pain Control Satisfactory: Yes Nausea and Vomiting Control Satisfactory: Yes Mental Status Recovered: Yes Vital Signs: Last Vital Signs Temp 36.6 C 08/25/19 08:15 Pulse 75 08/25/19 08:15 Resp 16 08/25/19 08:15 BP 123/77 08/25/19 08:15 Pulse Ox 97 08/25/19 08:15 - COMMENTS/OBSERVATIONS Free Text/Narrative:: Lana has been up moving around today with no complaints. No further questions at this time.
[2019-08-26 10:00] VITALS: BP 131/77; PULSE 81
== END 2019-08-26 11:22 | disposition home or self-care (01) | DRG 807 ==
LOC: JD.OBCHECK 10:07 → JD.OB 10:07 → JD.OBCHECK 10:32 → JD.OB 10:32 → OBSVTOIN 19:32 → JD.OB 19:32
PROVIDERS: ADMIT Obstetrics & Gynecology; ATTEND Obstetrics & Gynecology
PROC: 10E0XZZ Delivery of Products of Conception, External Approach (ICD-10-PCS; principal; 2019-08-24)
PROC: 3E0R3BZ Introduction of Anesthetic Agent into Spinal Canal, Percutaneous Approach (ICD-10-PCS; 2019-08-24)
DX: O80 Encounter for full-term uncomplicated delivery (principal); Z37.0 Single live birth; Z3A.39 39 weeks gestation of pregnancy; Z88.0 Allergy status to penicillin; Z79.899 Other long term (current) drug therapy
CPT/HCPCS: 01967; 36415; 51702; 59025; 59409; 85025; 86592; 86850; 86900; 86901; A9270-GY; J2590; J3010; J3490; J7120

== ENCOUNTER 2019-08-28 21:37 | Emergency (ER) | payer OTHER ==
[2019-08-28 22:11] VITALS: BP 152/79; PULSE 69
--- NOTE | 2019-08-28 22:59 | PCM.CONS ---
H&P History of Present Illness - General Date of Service: 08/28/19 Source of Information: Patient History Limitations: Reports: No Limitations - History of Present Illness Initial Comments - Free Text/Narative: The patient is a 23-year-old female who presents with anal pain and and hemorrhoids. The patient is 4 days. She reports going home without difficulty and having the hemorrhoids appear after being at home. The pain started 3 days ago and has worsened in the anal area. She also reports noting some hematochezia. She is not sure if the blood she noticed was in her stool or from the lochia. She had one hemorrhoid that was small and not bothersome after the of her previous child. She has never had a problem like this. Rectal Pain Score (Numeric/FACES): 10 - Related Data Allergies/Adverse Reactions: Allergies Allergy/AdvReac Type Severity Reaction Status Date / Time amoxicillin Allergy Rash Verified 08/28/19 22:52 Home Medications: Home Meds . 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 - Past Surgical History HEENT Surgical 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: Oral Surgery Social & Family History - Family History Cardiac: Denies: AR Endocrine/Metabolic: Denies: Diabetes, type II Oncologic: Denies: None - Tobacco Use Smoking Status *Q: Never Smoker Second Hand Smoke Exposure: No - Caffeine Use Caffeine Use: Reports: None Other Caffeine Use: occasional - Recreational Drug Use Recreational Drug Use: No H&P Review of Systems - Review of Systems: Review Of Systems: See Below General: Reports: No Symptoms HEENT: Reports: No Symptoms Pulmonary: Reports: No Symptoms Cardiovascular: Reports: No Symptoms Gastrointestinal: Reports: Hematochezia Genitourinary: Reports: No Symptoms Musculoskeletal: Reports: No Symptoms Skin: Reports: No Symptoms Neurological: Reports: No Symptoms Exam - Exam Exam: See Below - Vital Signs Vital Signs: Last Vital Signs Temp 36.8 C 08/28/19 22:05 Pulse 69 08/28/19 22:05 Resp 20 08/28/19 22:05 BP 152/79 H 08/28/19 22:05 Pulse Ox 97 08/28/19 22:05 - Exam Quality Assessment: No: Supplemental Oxygen General: Alert, Oriented HEENT: Conjunctiva Clear, EOMI Neck: Supple Lungs: Clear to Auscultation, Normal Respiratory Effort GI/Abdominal Exam: Soft, No Distention (Female) Exam: Enlarged Uterus Extremities: Normal Inspection Skin: Warm, Dry, Intact Neurological: Cranial Nerves Intact Neuro Extensive - Mental Status: Oriented x3, Normal Mood/Affect Sepsis Event Note - Evaluation Sepsis Screening Result: No Definite Risk - Focused Exam Vital Signs: Vital Signs Temp Pulse Resp BP Pulse Ox 08/28/19 22:05 36.8 C 69 20 152/79 H 97 Date Exam was Performed: 08/28/19 Time Exam was Performed: 23:49 *Q Meaningful Use (ADM) - VTE Risk Assess *Q Each Risk Factor Represents 1 Point: or , Less than 1 Month Total Score 1 Point Risk Factors: 1 Consult PN Assessment/Plan Procedures: Procedures ASSAY OF PROGESTERONE (01/15/19) BLOOD TYPING SEROLOGIC ABO (02/18/19) BLOOD TYPING SEROLOGIC RH(D) (02/18/19) C DIFF AMPLIFIED PROBE (08/20/19) C-REACTIVE PROTEIN (08/09/16) CHORIONIC GONADOTROPIN ASSAY (08/09/16) CHORIONIC GONADOTROPIN TEST (01/03/19) CHYLMD TRACH DNA AMP PROBE (02/18/19) COMPLETE CBC W/AUTO DIFF WBC (08/20/19) COMPREHEN METABOLIC PANEL (08/20/19) CRYPTOSPORIDIUM AG IA (08/20/19) CT ABD & PELVIS W/O CONTRAST (08/09/16) CULTURE SCREEN ONLY (05/21/19) EMERGENCY DEPT VISIT (08/09/16) GIARDIA AG IA (08/20/19) GLUCOSE TEST (05/21/19) HEPATITIS B SURFACE AG IA (02/18/19) HIV-1 AG W/HIV-1 & HIV-2 AB (02/18/19) HYDRATE IV INFUSION ADD-ON (08/09/16) N.GONORRHOEAE DNA AMP PROB (02/18/19) OB US >/= 14 WKS SNGL FETUS (04/15/19) OB US FOLLOW-UP PER FETUS (05/28/19) RBC ANTIBODY SCREEN (02/18/19) ROUTINE VENIPUNCTURE (08/20/19) RUBELLA ANTIBODY (02/18/19) STREP A AG IA (05/21/19) STREP B DNA AMP PROBE (08/05/19) SYPHILIS TEST NON-TREP QUAL (05/21/19) THER/PROPH/DIAG INJ IV PUSH (08/09/16) TX/PRO/DX INJ NEW DRUG ADDON (08/09/16) URINALYSIS AUTO W/O SCOPE (02/18/19) URINALYSIS AUTO W/SCOPE (08/05/19) URINE CULTURE/COLONY COUNT (08/05/19) (1) Thrombosed external hemorrhoids SNOMED Code(s): 21819122 Code(s): K64.5 - PERIANAL VENOUS THROMBOSIS Current Visit: Yes Problem List Initiated/Reviewed/Updated: Yes Plan: 23 y/o female with thrombosed external hemorrhoids - the patient would benefit from incision and drainage of the clots. risk of bleeding was explained her written consent was obtained - OTC ibuprofen or tylenol for pain - sitz baths as needed - follow up in one week Shoshana Segal MD General surgery
[2019-08-28] MEDS ORDERED: Lidocaine 1% with EPINEPHrine 1:100,000 20 ML MDV ONE (23:07)
--- NOTE | 2019-08-28 23:20 | EDM.PDOC ---
ED HPI GENERAL MEDICAL PROBLEM - General Chief Complaint: Genitourinary Problem Stated Complaint: Hemorrhoids Time Seen by Provider: 08/28/19 22:19 Source of Information: Reports: Patient History Limitations: Reports: No Limitations - History of Present Illness INITIAL COMMENTS - FREE TEXT/NARRATIVE: The patient presents with hemorrhoids. She just delivered on Sunday and she was discharged on Sunday. She had no pain until later Sunday and now she has non stop pain. She has tried sits baths, tucks pads, lidocaine and preparation H but nothing is helping. She is still having loose stools. Onset: Gradual Duration: Day(s): Location: Reports: Other (rectal pain) Quality: Reports: Sharp Severity: Severe Improves with: Reports: None Worsens with: Reports: None Associated Symptoms: Reports: No Other Symptoms Rectal Pain Score (Numeric/FACES): 10 - Related Data Allergies Allergy/AdvReac Type Severity Reaction Status Date / Time amoxicillin Allergy Rash Verified 08/28/19 22:52 Home Meds: Home Meds . 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 - Past Surgical History HEENT Surgical 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: Oral Surgery Social & Family History - Family History Family Medical History: Noncontributory Cardiac: Denies: SD Endocrine/Metabolic: Denies: Diabetes, type II Oncologic: Denies: None - Tobacco Use Smoking Status *Q: Never Smoker Second Hand Smoke Exposure: No - Caffeine Use Caffeine Use: Reports: None Other Caffeine Use: occasional - Recreational Drug Use Recreational Drug Use: No ED ROS GENERAL - Review of Systems Review Of Systems: See Below Constitutional: Reports: No Symptoms HEENT: Reports: No Symptoms Respiratory: Reports: No Symptoms Cardiovascular: Reports: No Symptoms Endocrine: Reports: No Symptoms GI/Abdominal: Reports: Other (hemorrhoid). Denies: Abdominal Pain, Nausea, Vomiting : Reports: No Symptoms Musculoskeletal: Reports: No Symptoms ED EXAM, GI/ABD - Physical Exam Exam: See Below Exam Limited By: No Limitations General Appearance: Alert, No Apparent Distress Ears: Normal External Exam Nose: Normal Inspection Head: Atraumatic, Normocephalic Neck: Normal Inspection Respiratory/Chest: No Respiratory Distress, Lungs Clear, Normal Breath Sounds Cardiovascular: Regular Rate, Rhythm, No Edema, No Murmur GI/Abdominal Exam: Soft, Non-Tender, No Organomegaly, No Mass Rectal (Female) Exam: Other (Multiple hemorrhoids with some that have ecchymosis ) Course - Vital Signs Last Recorded V/S: Last Vital Signs Temp 98.2 F 08/28/19 22:05 Pulse 69 08/28/19 22:05 Resp 20 08/28/19 22:05 BP 152/79 H 08/28/19 22:05 Pulse Ox 97 08/28/19 22:05 - Orders/Labs/Meds Meds: Medications Discontinued Medications Generic Name Dose Route Start Last Admin Trade Name Freq PRN Reason Stop Dose Admin Lidocaine/Epinephrine Confirm 08/28/19 23:07 Xylocaine 1% With Epinephrine 1:100,000 Administered 08/28/19 23:08 Dose 20 ml .ROUTE .STK-MED ONE - Re-Assessments/Exams Free Text/Narrative Re-Assessment/Exam: 08/28/19 23:[address] Morgan and she says 2 look thrombosed. She will take her to surgery to have some removed. Departure - Departure Time of Disposition: 23:35 Disposition: DC/Tfer to [facility] Condition: Fair Clinical Impression: Hemorrhoids Qualifiers: Hemorrhoid type: unspecified Qualified Code(s): K64.9 - Unspecified hemorrhoids - Discharge Information Referrals: Bro Santana MD [Primary Care Provider] - Sepsis Event Note - Evaluation Sepsis Screening Result: No Definite Risk - Focused Exam Vital Signs: Vital Signs Temp Pulse Resp BP Pulse Ox 08/28/19 22:05 98.2 F 69 20 152/79 H 97 Date Exam was Performed: 08/28/19 Time Exam was Performed: 23:15
--- NOTE | 2019-08-29 00:02 | PCM.PRNOTE ---
- Free Text/Narrative Note: Operative Report Date of procedure: August 28, 2019 Preprocedure diagnosis: Thrombosed external hemorrhoids Post procedure diagnosis: same Procedure: Incision and drainage of thrombosed external hemorrhoids Surgeon: Dr. Shoshana Segal Anesthesia: Local with 1% lidocaine with epinephrine Inspector Weights And Measures: N/A Estimated blood loss: 15 mL IV fluids: 0 mL Findings: 2 hemorrhoidal cushions containing thrombosis Pathology: None Indication for the procedure: The patient is a 23-year-old female who presents with worsening anal pain and thrombosis of external hemorrhoids. We discussed incision and drainage to remove the clot. Her written consent was obtained after discussing risks of bleeding. Description of the procedure: The patient was placed in the right lateral decubitus position. The area and the surrounding skin was prepped with Betadine. Local anesthetic was injected using 1% lidocaine with epinephrine. We then made an incision over 3 areas containing thrombosis. Pressure was applied to extrude the clot. A Small amount of clot was removed from each of these incisions. There was a slow ooze from these areas at the end of the case. A dry dressing was applied. Complications: None apparent Shoshana Segal MD General Surgery
[2019-08-29] MEDS ORDERED: Lidocaine 1% with EPINEPHrine 1:100,000 20 ML MDV INJECT ONE (00:24)
== END 2019-08-29 00:15 | disposition critical access hospital (66) ==
LOC: JD.ED 21:37
DX: K64.5 Perianal venous thrombosis (principal); Z88.1 Allergy status to other antibiotic agents; Z98.890 Other specified postprocedural states
CPT/HCPCS: 46083; 99283; 99284-25

== ENCOUNTER 2020-10-16 04:15 | Inpatient (IN) | payer OTHER ==
[2020-10-16] MEDS ORDERED: Ondansetron 4 MG/2 ML SDV IVPUSH PRN (05:11)
[2020-10-16] MEDS ORDERED: Sodium Chloride 0.9% 10 ML Syringe FLUSH PRN (05:11)
[2020-10-16] MEDS ORDERED: Nalbuphine 10 MG/1 ML Vial IVPUSH PRN (05:11)
[2020-10-16] MEDS ORDERED: Oxytocin/Lactated Ringers 10 UNIT/1,000 ML BAG IV SCH ×3 (05:15→14:58)
[2020-10-16] MEDS: Lactated Ringers 1,000 ML IV SCH ×3 (06:32→08:22)
[2020-10-16] MEDS ORDERED: fentaNYL 100 MCG/2 ML SDV EPIDUR PRN (08:26)
[2020-10-16] MEDS ORDERED: Bupivacaine/fentaNYL/NS 100 ML Bag EPIDUR PRN (08:26)
[2020-10-16] MEDS ORDERED: diphenhydrAMINE 50 MG/ML SDV IVPUSH PRN (08:26)
[2020-10-16] MEDS ORDERED: fentaNYL 100 MCG/2 ML SDV ONE (08:30)
--- NOTE | 2020-10-16 08:57 | PCM.PREANE ---
Preanesthetic Assessment - Procedure Proposed Procedure: Epidural - Anesthesia/Transfusion/Family Hx Anesthesia History: Prior Anesthesia Without Reaction Family History of Anesthesia Reaction: No Transfusion History: No Prior Transfusion(s) - Review of Systems General: Fatigue Pulmonary: No Symptoms Cardiovascular: No Symptoms Gastrointestinal: Abdominal Pain (labor) Neurological: No Symptoms Other: Reports: None - Physical Assessment Vital Signs: Last Vital Signs Temp 36.3 C 10/16/20 04:21 Pulse 102 H 10/16/20 04:21 Resp 14 10/16/20 04:21 BP 128/78 10/16/20 04:21 Pulse Ox 94 L 10/16/20 04:21 Height: 1.65 m Weight: 118.841 kg ASA Class: 2 Mental Status: Alert & Oriented x3 Airway Class: Mallampati = 2 Dentition: Reports: Normal Dentition Thyro-Mental Finger Breadths: 3 Mouth Opening Finger Breadths: 3 ROM/Head Extension: Full Lungs: Clear to Auscultation, Normal Respiratory Effort Cardiovascular: Regular Rate, Regular Rhythm - Lab Values: Laboratory Last Values WBC 12.22 K/mm3 (3.98-10.04) H 10/16/20 05:25 RBC 4.03 M/mm3 (3.98-5.22) 10/16/20 05:25 Hgb 12.8 gm/dl (11.2-15.7) 10/16/20 05:25 Hct 37.3 % (34.1-44.9) 10/16/20 05:25 MCV 92.6 fl (79.4-94.8) 10/16/20 05:25 MCH 31.8 pg (25.6-32.2) 10/16/20 05:25 MCHC 34.3 g/dl (32.2-35.5) 10/16/20 05:25 RDW Std Deviation 42.9 fL (36.4-46.3) 10/16/20 05:25 Plt Count 294 K/mm3 (182-369) 10/16/20 05:25 MPV 10.2 fl (9.4-12.3) 10/16/20 05:25 Neut % (Auto) 68.8 % (34.0-71.1) 10/16/20 05:25 Lymph % (Auto) 20.7 % (19.3-51.7) 10/16/20 05:25 [place] % (Auto) 9.4 % (4.7-12.5) 10/16/20 05:25 Eos % (Auto) 0.7 (0.7-5.8) 10/16/20 05:25 Baso % (Auto) 0.4 % (0.1-1.2) 10/16/20 05:25 Neut # (Auto) 8.40 K/mm3 (1.56-6.13) H 10/16/20 05:25 Lymph # (Auto) 2.53 K/mm3 (1.18-3.74) 10/16/20 05:25 [place] # (Auto) 1.15 K/mm3 (0.24-0.36) H 10/16/20 05:25 Eos # (Auto) 0.09 K/mm3 (0.04-0.36) 10/16/20 05:25 Baso # (Auto) 0.05 K/mm3 (0.01-0.08) 10/16/20 05:25 SARS-CoV-2 RNA ([facility]) Negative (NEGATIVE) 10/16/20 05:20 - Allergies Allergies/Adverse Reactions: Allergies Allergy/AdvReac Type Severity Reaction Status Date / Time amoxicillin Allergy Rash Verified 08/28/19 22:52 - Anesthesia Plan Pre-Op Medication Ordered: None - Acknowledgements Anesthesia Type Planned: Epidural Pt an Appropriate Candidate for the Planned Anesthesia: Yes Alternatives and Risks of Anesthesia Discussed w Pt/Guardian: Yes Pt/Guardian Understands and Agrees with Anesthesia Plan: Yes PreAnesthesia Questionnaire - Past Health History Medical/Surgical History: Denies Medical/Surgical History HEENT 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: Impaired Vision, Other (See Below) Other HEENT History: wears glasses Gastrointestinal 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: Chronic Constipation, GERD, Hemorrhoids Other Gastrointestinal History: frequent loose stools Genitourinary 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: Renal Calculus [employer]EL[employer] F[employer] 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: , 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 - Past Surgical History HEENT Surgical 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: Oral Surgery GI Surgical 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: Other (See Below) Other GI Surgeries/Procedures: hemorrhoidectomy after last delivery - SUBSTANCE USE Tobacco Use Status *Q: Never Tobacco User Recreational Drug Use History: No - HOME MEDS Home Medications: Home Meds Docusate Sodium [Colace] 100 mg PO DAILY 10/16/20 [History] Ondansetron [Zofran] 4 mg PO Q4H 10/16/20 [History] Vits #93/Iron Fum/FA [ Formula Tablet] 1 each PO DAILY 10/16/20 [History] - CURRENT (IN HOUSE) MEDS Current Meds: Current Medications Diphenhydramine HCl (Diphenhydramine 50 Mg/Ml Sdv) 25 mg IVPUSH Q6H PRN PRN Reason: pruritis Ephedrine Sulfate (Ephedrine 50 Mg/Ml Sdv) 5 mg IVPUSH ASDIRECTED PRN PRN Reason: Hypotension Fentanyl (Fentanyl 100 Mcg/2 Ml Sdv) 100 mcg EPIDUR Q3H PRN PRN Reason: Pain Fentanyl/Bupivacaine HCl (Bupivacaine/Fentanyl/Ns 100 Ml Bag) 100 ml EPIDUR ASDIRECTED PRN PRN Reason: Pain Lactated Ringer's (Ringers, Lactated) 1,000 mls @ 100 mls/hr IV ASDIRECTED CAROLE Last Admin: 10/16/20 08:22 Dose: 100 mls/hr Documented by: Oxytocin/Lactated Ringer's (Pitocin In Lr 10 Units/1,000 Ml) 10 unit in 1,000 mls @ 500 mls/hr IV .CONTINUOUS CAROLE Nalbuphine HCl (Nalbuphine 10 Mg/1 Ml Vial) 10 mg IVPUSH Q2H PRN PRN Reason: Pain Last Admin: 10/16/20 06:39 Dose: 10 mg Documented by: Ondansetron HCl (Ondansetron 4 Mg/2 Ml Sdv) 4 mg IVPUSH Q4H PRN PRN Reason: Nausea/Vomiting Sodium Chloride (Sodium Chloride 0.9% 10 Ml Syringe) 10 ml FLUSH ASDIRECTED PRN PRN Reason: Keep Vein Open Discontinued Medications Fentanyl (Fentanyl 100 Mcg/2 Ml Sdv) Confirm Administered Dose 100 mcg .ROUTE .STK-MED ONE Stop: 10/16/20 08:31
[2020-10-16] MEDS: ePHEDrine 50 MG/ML SDV IVPUSH PRN ×3 (09:03→09:19)
--- NOTE | 2020-10-16 10:01 | PCM.LDHP ---
L&D History of Present Illness - General Date of Service: 10/16/20 Admit Problem/Dx: Patient Status Order with Admit Dx/Problem 10/16/20 04:21 Patient Status [ADT] Routine 10/16/20 05:11 Patient Status [ADT] Routine Admission Diagnosis/Problem Admission Diagnosis/Problem Source of Information: Patient History Limitations: Reports: No Limitations - History of Present Illness Introduction:: Lana Parker is a 25-year-old -0-1-2 female at 40 weeks 1 day (JOSE DAVID 10/15/2020) by a 8-week ultrasound who presents with spontaneous rupture of membranes at home. She reports that around 3 AM she got up to use the restroom and noticed that she had a small amount of watery vaginal discharge that continued. She then got up later in the morning and had another gush of fluid that came out. She was having fairly consistent leaking of fluid vaginally between those larger gushes. She states that the fluid was clear. After the initial gush she did start to have some contractions that were about 8 minutes apart. She states that they did become more intense in nature but did not get closer together at all. She reports good movement. She denies any vaginal bleeding. She did have some light pink discharge at the hospital after she started to have some contractions here. Timing/Duration: Reports: sudden onset (With small gush of fluid at around 3 AM), constant/continuous (Small amounts of clear fluid), intermittent (Contractions about every 8 minutes) Location, : Reports: Lower back, Pelvic, Uterus Quality: Reports: Pressure Pain Score: 7 Improves with: Reports: None Worsens with: Reports: None Associated Symptoms: Reports: vaginal fluid, mild amount. Denies: vaginal bleeding, vaginal discharge Present Illness Comments:: Lana Parker is a 25-year-old -0-1-2 female at 40 weeks 1 day (JOSE DAVID 10/15/2020) by an 8-week ultrasound who presents with spontaneous rupture membran es. She has had routine care with Dr. Santana'leopoldo starting at 8 weeks gestational age. Her has been complicated by nausea and vomiting throughout the . She has also had some constipation with need for stool softeners occasionally. She received the Tdap vaccine on 09/06/2020 and influenza vaccine on 04/05/2020. 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 G1: 06/22/2017, 40 weeks 2 days, , 8 pounds 0 ounces, female infant, epidural for anesthesia, no complications G2: 05/15/2018, SAB at 6 weeks gestational age G3: 08/24/2019, 39 weeks, , 8 pounds 6 ounces, male , epidural for anesthesia, no complications G4: Current labs Blood type: O+ Antibody screen: Negative First trimester hematocrit/hemoglobin: 40.5%/13.8 on 04/05/2020 Platelets: 343 on 04/05/2020 Urine culture: Mixed skye suggestive of contamination Rubella status: Immune Hepatitis B surface antigen: Negative RPR: Negative HIV: Negative Gonorrhea: Negative Chlamydia: Negative Anatomy ultrasound: Normal anatomy, no abnormalities, posterior placenta, no pr evia, 33rd percentile on ultrasound on 06/24/2020 One hour glucose tolerance test: 106 Second trimester hematocrit/hemoglobin: 37.5%/12.5 on 07/21/2020 Platelets: 313 on 07/21/2020 GBS status: Negative - Related Data Allergies/Adverse Reactions: Allergies Allergy/AdvReac Type Severity Reaction Status Date / Time amoxicillin Allergy Rash Verified 08/28/19 22:52 Home Medications: Home Meds Docusate Sodium [Colace] 100 mg PO DAILY 10/16/20 [History] Ondansetron [Zofran] 4 mg PO Q4H 10/16/20 [History] Vits #93/Iron Fum/FA [ Formula Tablet] 1 each PO DAILY 10/16/20 [History] Past Medical History HEENT 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: Impaired Vision, Other (See Below) Other HEENT History: wears glasses Gastrointestinal 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: Chronic Constipation, GERD, Hemorrhoids Other Gastrointestinal History: frequent loose stools Genitourinary 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: Renal Calculus 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 DIRECTOR 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: , 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 : 4 Para: 2 - Past Surgical History HEENT Surgical 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: Oral Surgery GI Surgical 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: Other (See Below) Other GI Surgeries/Procedures: hemorrhoidectomy after last delivery Social & Family History - Family History Family Medical History: No Pertinent Family History - Tobacco Use Tobacco Use Status *Q: Never Tobacco User - Tobacco Core Measures Tobacco Use/Smoking Within Last 30 Days: No Smokeless Tobacco Use in Last 30 Days: No - Caffeine Use Caffeine Use: Reports: None Other Caffeine Use: occasional - Alcohol Use Alcohol Use History: No - Recreational Drug Use Recreational Drug Use: No - Living Situation & Occupation Living situation: Reports: , with Spouse, with Family Occupation: Employed H&P Review of Systems - Review of Systems: Review Of Systems: See Below General: Denies: Fever, Chills, Malaise, Weakness, Fatigue HEENT: Reports: Glasses, Sore Throat (since last night). Denies: Headaches, Rhinitis, Post Nasal Drip, Sinus Congestion, Visual Changes Pulmonary: Denies: Shortness of Breath, Wheezing, Pleuritic Chest Pain, Cough Cardiovascular: Denies: Chest Pain, Palpitations, Dyspnea on Exertion, Orthopnea Gastrointestinal: Denies: Abdominal Pain, Constipation, Diarrhea, Nausea, Vomiting Genitourinary: Denies: Dysuria, Frequency, Burning, Pain, Urgency Musculoskeletal: Reports: Back Pain (and hip pain of ) Skin: Denies: Rash, Lesions Psychiatric: Denies: Depression, Anxiety L&D Exam - Exam Exam: See Below - Vital Signs Vital Signs: Last Vital Signs Temp 36.3 C 10/16/20 04:21 Pulse 102 H 10/16/20 04:21 Resp 14 10/16/20 04:21 BP 128/78 10/16/20 04:21 Pulse Ox 94 L 10/16/20 04:21 Weight: 118.841 kg - OB Specific Contraction Duration (sec): 45-60 Contraction Frequency (min): 3-7 Contraction Intensity: Mild to Moderate Movement: Active Heart Tones: Present Heart Tones per Min: 120 (+15 x 15 accelerations, no decelerations) Heart Rate (FHR) Variability: Moderate (6-25 bmp) Presentation: Vertex Estimated Weight: 8.5-9 pounds by [place] - Roberts Score Roberts Score Cervix Position: Midposition Roberts Score Consistency: Soft Roberts Score Effacement: >80% (90%) Roberts Score Dilation: > 5 cm (5 cm) Roberts Score 's Station: -3 Roberts Score Total: 9 - Exam General: Alert, Oriented HEENT: Conjunctiva Clear, EOMI Neck: Supple, Trachea Midline Lungs: Clear to Auscultation, Normal Respiratory Effort Cardiovascular: Regular Rate, Regular Rhythm GI/Abdominal Exam: Soft, Non-Tender, No Distention, Other (Gravid). No: Guarding, Rigid, Rebound Genitourinary: Normal external exam Extremities: Normal Inspection, No Pedal Edema Skin: Warm, Dry, Intact Psychiatric: Alert, Normal Affect, Normal Mood - Patient Data Lab Results Last 24 hrs: Laboratory Results - last 24 hr 10/16/20 10/16/20 Range/Units 05:20 05:25 WBC 12.22 H (3.98-10.04) K/mm3 RBC 4.03 (3.98-5.22) M/mm3 Hgb 12.8 (11.2-15.7) gm/dl Hct 37.3 (34.1-44.9) % MCV 92.6 (79.4-94.8) fl MCH 31.8 (25.6-32.2) pg MCHC 34.3 (32.2-35.5) g/dl RDW Std Deviation 42.9 (36.4-46.3) fL Plt Count 294 (182-369) K/mm3 MPV 10.2 (9.4-12.3) fl Neut % (Auto) 68.8 (34.0-71.1) % Lymph % (Auto) 20.7 (19.3-51.7) % [place] % (Auto) 9.4 (4.7-12.5) % Eos % (Auto) 0.7 (0.7-5.8) Baso % (Auto) 0.4 (0.1-1.2) % Neut # (Auto) 8.40 H (1.56-6.13) K/mm3 Lymph # (Auto) 2.53 (1.18-3.74) K/mm3 [place] # (Auto) 1.15 H (0.24-0.36) K/mm3 Eos # (Auto) 0.09 (0.04-0.36) K/mm3 Baso # (Auto) 0.05 (0.01-0.08) K/mm3 SARS-CoV-2 RNA ([facility]) Negative (NEGATIVE) Result Diagrams: 10/16/20 05:25 - Problem List (1) 40 weeks gestation of SNOMED Code(s): 81975274 ICD Code: Z3A.40 - 40 WEEKS GESTATION OF Status: Acute Current Visit: Yes (2) Obesity affecting SNOMED Code(s): 270598677618, 570363328478 ICD Code: O99.210 - OBESITY COMPLICATING , UNSPECIFIED TRIMESTER Status: Acute Current Visit: Yes Problem List Initiated/Reviewed/Updated: Yes Orders Last 24hrs: Active Orders 24 hr Category Date Time Status Patient Status [ADT] Routine ADT 10/16/20 05:11 Active Activity as Tolerated [RC] PFP Care 10/16/20 05:11 Active Communication Order [RC] ASDIRECTED Care 10/16/20 05:11 Active Communication Order [RC] ASDIRECTED Care 10/16/20 08:27 Active Cooling Warming Measures [RC] ASDIRECTED Care 10/16/20 08:27 Active Heart Tones [RC] ASDIRECTED Care 10/16/20 05:12 Active Non Stress Test [RC] PER UNIT ROUTINE Care 10/16/20 04:21 Active Notify Provider [RC] ASDIRECTED Care 10/16/20 08:26 Active Notify Provider [RC] ASDIRECTED Care 10/16/20 08:27 Active Notify Provider [RC] PFP Care 10/16/20 05:11 Active Notify Provider [RC] PRN Care 10/16/20 05:11 Active Oxygen Therapy [RC] ASDIRECTED Care 10/16/20 08:26 Active Peripheral IV Care [RC] . DIRECTED Care 10/16/20 05:12 Active Pulse Oximetry [RC] ASDIRECTED Care 10/16/20 08:27 Active Urinary Catheter Assessment [RC] ASDIRECTED Care 10/16/20 05:11 Active Vital Signs [RC] PER UNIT ROUTINE Care 10/16/20 04:21 Active Vital Signs [RC] Q1H Care 10/16/20 08:26 Active Regular Diet [DIET] Diet 10/16/20 Breakfast Active HEP C VIRUS AB [REF] Stat Lab 10/16/20 05:25 Received RAPID PLASMA REAGIN,RPR [CHEM] Routine Lab 10/16/20 05:25 Received Bupivacaine/fentaNYL/NS [fentaNYL/Bupivacaine/NS 2 MCG- Med 10/16/20 08:26 Active 0.125% 100 ML] 100 ml EPIDUR ASDIRECTED PRN Lactated Ringers [Ringers, Lactated] 1,000 ml Med 10/16/20 05:15 Active IV ASDIRECTED Nalbuphine [Nubain] Med 10/16/20 05:11 Active 10 mg IVPUSH Q2H PRN Ondansetron [Zofran] Med 10/16/20 05:11 Active 4 mg IVPUSH Q4H PRN Oxytocin/Lactated Ringers [Pitocin in LR 10 Units/1,000 Med 10/16/20 05:15 Active ML] 10 unit in 1,000 ml IV .CONTINUOUS Oxytocin/Lactated Ringers [Pitocin in LR 10 Units/1,000 Med 10/16/20 10:00 Ordered ML] 10 unit in 1,000 ml IV TITRATE Sodium Chloride 0.9% [Saline Flush] Med 10/16/20 05:11 Active 10 ml FLUSH ASDIRECTED PRN diphenhydrAMINE [Benadryl] Med 10/16/20 08:26 Active 25 mg IVPUSH Q6H PRN ePHEDrine [ePHEDrine sulfate] Med 10/16/20 08:26 Active 5 mg IVPUSH ASDIRECTED PRN fentaNYL [Sublimaze] Med 10/16/20 08:26 Active 100 mcg EPIDUR Q3H PRN Electronic Heart Tones Ext w TOCO [WOMSER] Oth 10/16/20 05:11 Ordered Routine Electronic Heart Tones Internal [WOMSER] Per Unit Oth 10/16/20 05:11 Ordered Routine Peripheral IV Insertion Adult [OM.PC] Routine Oth 10/16/20 05:11 Ordered Resuscitation Status Routine Resus Stat 10/16/20 04:21 Ordered Medication Orders Diphenhydramine HCl (Diphenhydramine 50 Mg/Ml Sdv) 25 mg IVPUSH Q6H PRN PRN Reason: pruritis Ephedrine Sulfate (Ephedrine 50 Mg/Ml Sdv) 5 mg IVPUSH ASDIRECTED PRN PRN Reason: Hypotension Last Admin: 10/16/20 09:19 Dose: 5 mg Documented by: Admin: 10/16/20 09:11 Dose: 5 mg Documented by: Admin: 10/16/20 09:03 Dose: 5 mg Documented by: KAREEM Fentanyl (Fentanyl 100 Mcg/2 Ml Sdv) 100 mcg EPIDUR Q3H PRN PRN Reason: Pain Last Admin: 10/16/20 08:54 Dose: 100 mcg Documented by: KAREEM Fentanyl/Bupivacaine HCl (Bupivacaine/Fentanyl/Ns 100 Ml Bag) 100 ml EPIDUR ASDIRECTED PRN PRN Reason: Pain Last Admin: 10/16/20 09:00 Dose: 100 ml Documented by: KAREEM Lactated Ringer's (Ringers, Lactated) 1,000 mls @ 100 mls/hr IV ASDIRECTED CAROLE Last Admin: 10/16/20 08:22 Dose: 100 mls/hr Documented by: Infusion: 10/16/20 08:22 Dose: 100 mls/hr Documented by: Admin: 10/16/20 06:39 Dose: 100 mls/hr Documented by: Infusion: 10/16/20 06:39 Dose: 100 mls/hr Documented by: Admin: 10/16/20 06:32 Dose: 100 mls/hr Documented by: SHRUTHI Oxytocin/Lactated Ringer's (Pitocin In Lr 10 Units/1,000 Ml) 10 unit in 1,000 mls @ 500 mls/hr IV .CONTINUOUS [facility] Nalbuphine HCl (Nalbuphine 10 Mg/1 Ml Vial) 10 mg IVPUSH Q2H PRN PRN Reason: Pain Last Admin: 10/16/20 06:39 Dose: 10 mg Documented by: SHRUTHI Ondansetron HCl (Ondansetron 4 Mg/2 Ml Sdv) 4 mg IVPUSH Q4H PRN PRN Reason: Nausea/Vomiting Last Admin: 10/16/20 09:09 Dose: 4 mg Documented by: KAREEM Sodium Chloride (Sodium Chloride 0.9% 10 Ml Syringe) 10 ml FLUSH ASDIRECTED PRN PRN Reason: Keep Vein Open Assessment/Plan Comment:: Anni Parker is a 25-year-old -0-1-2 female at 40 weeks 1 day (JOSE DAVID 10/15/2020) with spontaneous rupture of membranes Nurse reports having difficulty with monitoring contractions with external tocometer with plan for starting on Pitocin for augmentation of labor. Patient was counseled on the risks and benefits of having an intrauterine pressure catheter and she gave verbal consent. An intrauterine pressure catheter was placed without difficulty. Mother and tolerated procedure without difficulty. Refer to observation for spontaneous rupture of membranes Start Pitocin for augmentation of labor with irregular contractions every 3 to [address] IV and have Lactated Ringer's at 125 ml/hr May have small amounts of regular diet Activity as tolerated Patient with epidural in place and providing good anesthesia Plans to breast-feed after delivery Anticipate vaginal delivery unless otherwise indicated Amrit Carrington MD 10:17 AM 10/16/2020
[2020-10-16] MEDS ORDERED: Bupivacaine 0.25% 10 ML SDV ONE (14:00)
[2020-10-16] MEDS ORDERED: ePHEDrine 50 MG/ML SDV ONE (14:00)
--- NOTE | 2020-10-16 14:49 | PCM.DEL ---
L & D Note - General Info Date of Service: 10/16/20 Mother's Due Date: 10/15/20 - Delivery Note Labor: Spontaneous, Augmented by Oxytocin Delivery Outcome: Livebirth Infant Delivery Method: Spontaneous Vaginal Delivery-Single Presentation: Right Occiput Anterior (ANTHONY) Nuchal Cord: Present (x1) Anesthesia Type: Epidural Amniotic Fluid Description: Clear Episiotomy Type: None Laceration: Periurethral (superior abrasion, hemostatic, not repaired) Placenta: Intact, Spontaneous Cord: 3 Vessels Estimated Blood Loss: 200 Resuscitation Needed: No : Bulb Syringe, Stimulated, Warmed, [place] Used Provider: Franklyn Camarillo Score 1 min: 7 Score 5 min: 9 Second Stage Interventions: Reports: Pushing Effectively, Pushing, Stirrups/Leg Supports Delivery Comments (Free Text/Narrative):: Stage I: Lana Parker was admitted for spontaneous rupture membranes with clear fluid at home. On admission her cervix was dilated to 3. She was GBS negative. She was given an epidural for anesthesia. There was difficulty monitoring contractions with external tocometer and decision was made to place intrauterine pressure catheter. An intrauterine pressure catheter was placed without difficulty. She was started on Pitocin for augmentation of labor. She progressed to complete and pushing. Stage II: On 10/16/2020 she had a normal vaginal delivery of a live female at 14:14. Apgars of 7 & 9. Weight of 3260 g (7 lbs 3.0 oz). There was a single nuchal cord that was unable to be reduced due to precipitous delivery of the shoulders after delivery of the head. was delivered in ANTHONY position. The cord was doubly clamped and cut by father the infant. was placed on mother's abdomen. Stage III: She had a spontaneous delivery of an intact placenta in [facility] [place]. Three vessel cord. She was given pitocin and fundal massage. She had superior periurethral abrasion that was hemostatic and not repaired. Mom and baby were stable to recovery. EBL of 200 mL. Amrit Carrington MD 2:43 PM 10/16/2020 - General Info Date of Service: 10/16/20 - Patient Data Vitals - Most Recent: Last Vital Signs Temp 36.3 C 10/16/20 04:21 Pulse 102 H 10/16/20 04:21 Resp 14 10/16/20 04:21 BP 128/78 10/16/20 04:21 Pulse Ox 94 L 10/16/20 04:21 Weight - Most Recent: 118.841 kg I&O - Last 24 Hours: Intake & Output 10/15/20 10/16/20 10/16/20 22:59 06:59 14:59 Intake Total 60 Balance 60 Lab Results Last 24 Hours: Laboratory Results - last 24 hr 10/16/20 10/16/20 Range/Units 05:20 05:25 WBC 12.22 H (3.98-10.04) K/mm3 RBC 4.03 (3.98-5.22) M/mm3 Hgb 12.8 (11.2-15.7) gm/dl Hct 37.3 (34.1-44.9) % MCV 92.6 (79.4-94.8) fl MCH 31.8 (25.6-32.2) pg MCHC 34.3 (32.2-35.5) g/dl RDW Std Deviation 42.9 (36.4-46.3) fL Plt Count 294 (182-369) K/mm3 MPV 10.2 (9.4-12.3) fl Neut % (Auto) 68.8 (34.0-71.1) % Lymph % (Auto) 20.7 (19.3-51.7) % Wright % (Auto) 9.4 (4.7-12.5) % Eos % (Auto) 0.7 (0.7-5.8) Baso % (Auto) 0.4 (0.1-1.2) % Neut # (Auto) 8.40 H (1.56-6.13) K/mm3 Lymph # (Auto) 2.53 (1.18-3.74) K/mm3 Wright # (Auto) 1.15 H (0.24-0.36) K/mm3 Eos # (Auto) 0.09 (0.04-0.36) K/mm3 Baso # (Auto) 0.05 (0.01-0.08) K/mm3 SARS-CoV-2 RNA ([place]) Negative (NEGATIVE) Med Orders - Current: Current Medications Diphenhydramine HCl (Diphenhydramine 50 Mg/Ml Sdv) 25 mg IVPUSH Q6H PRN PRN Reason: pruritis Ephedrine Sulfate (Ephedrine 50 Mg/Ml Sdv) 5 mg IVPUSH ASDIRECTED PRN PRN Reason: Hypotension Last Admin: 10/16/20 09:19 Dose: 5 mg Documented by: Fentanyl (Fentanyl 100 Mcg/2 Ml Sdv) 100 mcg EPIDUR Q3H PRN PRN Reason: Pain Last Admin: 10/16/20 08:54 Dose: 100 mcg Documented by: Fentanyl/Bupivacaine HCl (Bupivacaine/Fentanyl/Ns 100 Ml Bag) 100 ml EPIDUR ASDIRECTED PRN PRN Reason: Pain Last Admin: 10/16/20 09:00 Dose: 100 ml Documented by: Lactated Ringer's (Ringers, Lactated) 1,000 mls @ 100 mls/hr IV ASDIRECTED CAROLE Last Admin: 10/16/20 08:22 Dose: 100 mls/hr Documented by: Oxytocin/Lactated Ringer's (Pitocin In Lr 10 Units/1,000 Ml) 10 unit in 1,000 mls @ 500 mls/hr IV .CONTINUOUS CAROLE Oxytocin/Lactated Ringer's (Pitocin In Lr 10 Units/1,000 Ml) 10 unit in 1,000 mls @ 12 mls/hr IV TITRATE CAROLE; Protocol Last Titration: 10/16/20 14:04 Dose: 10 munits/min, 60 mls/hr Documented by: Nalbuphine HCl (Nalbuphine 10 Mg/1 Ml Vial) 10 mg IVPUSH Q2H PRN PRN Reason: Pain Last Admin: 10/16/20 06:39 Dose: 10 mg Documented by: Ondansetron HCl (Ondansetron 4 Mg/2 Ml Sdv) 4 mg IVPUSH Q4H PRN PRN Reason: Nausea/Vomiting Last Admin: 10/16/20 09:09 Dose: 4 mg Documented by: Sodium Chloride (Sodium Chloride 0.9% 10 Ml Syringe) 10 ml FLUSH ASDIRECTED PRN PRN Reason: Keep Vein Open Discontinued Medications Fentanyl (Fentanyl 100 Mcg/2 Ml Sdv) Confirm Administered Dose 100 mcg .ROUTE .STK-MED ONE Stop: 10/16/20 08:31 Last Admin: 10/16/20 09:50 Dose: Not Given Documented by: - Problem List & Annotations (1) 40 weeks gestation of SNOMED Code(s): 51792240 Code(s): Z3A.40 - 40 WEEKS GESTATION OF Status: Acute Current Visit: Yes (2) Obesity affecting SNOMED Code(s): 783595712620, 837459940102 Code(s): O99.210 - OBESITY COMPLICATING , UNSPECIFIED TRIMESTER Status: Acute Current Visit: Yes (3) Vaginal delivery SNOMED Code(s): 834303964 Code(s): O80 - ENCOUNTER FOR FULL-TERM UNCOMPLICATED DELIVERY Status: Acute Current Visit: Yes - Problem List Review Problem List Initiated/Reviewed/Updated: Yes - My Orders Last 24 Hours: My Active Orders 10/16/20 04:21 Non Stress Test [RC] PER UNIT ROUTINE Vital Signs [RC] PER UNIT ROUTINE Resuscitation Status Routine 10/16/20 05:11 Patient Status [ADT] Routine Activity as Tolerated [RC] PFP Communication Order [RC] ASDIRECTED Notify Provider [RC] PFP Notify Provider [RC] PRN Urinary Catheter Assessment [RC] ASDIRECTED Nalbuphine [Nubain] 10 mg IVPUSH Q2H PRN Ondansetron [Zofran] 4 mg IVPUSH Q4H PRN Sodium Chloride 0.9% [Saline Flush] 10 ml FLUSH ASDIRECTED PRN Electronic Heart Tones Ext w TOCO [WOMSER] Routine Electronic Heart Tones Internal [WOMSER] Per Unit Routine Peripheral IV Insertion Adult [OM.PC] Routine 10/16/20 05:12 Heart Tones [RC] ASDIRECTED Peripheral IV Care [RC] . DIRECTED 10/16/20 05:15 Lactated Ringers [Ringers, Lactated] 1,000 ml IV ASDIRECTED Oxytocin/Lactated Ringers [Pitocin in LR 10 Units/1,000 ML] 10 unit in 1,000 ml IV .CONTINUOUS 10/16/20 05:25 HEP C VIRUS AB [REF] Stat RAPID PLASMA REAGIN,RPR [CHEM] Routine 10/16/20 Breakfast Regular Diet [DIET] 10/16/20 10:00 Oxytocin/Lactated Ringers [Pitocin in LR 10 Units/1,000 ML] 10 unit in 1,000 ml IV TITRATE 10/16/20 14:34 Patient Status Manage Transfer [TRANSFER] Routine - Plan Plan:: Anni Parker is a 25-year-old now -0-1-3 female status post , PPD #0 Admit to inpatient following normal spontaneous vaginal delivery Continue Pitocin per unit protocol following delivery of placenta and lactated Ringer's until tolerating regular diet Regular diet Vitals per unit routine Ibuprofen and Tylenol for pain control Assist with breast-feeding as needed Continue to monitor lochia Anticipate discharge home on day #1 Amrit Carrington MD 2:43 PM 10/16/2020
[2020-10-16] MEDS ORDERED: Benzocaine/Menthol 20%-0.5% Spray 56 GM Canister TOP PRN (14:58)
[2020-10-16] MEDS ORDERED: Hydrocortisone Acetate 25 MG Supp RECTAL PRN (14:58)
[2020-10-16] MEDS ORDERED: Witch Hazel Medicated Pads 40/Jar TOP PRN (14:58)
[2020-10-16] MEDS ORDERED: Acetaminophen 325 MG Tab PO PRN (14:58)
[2020-10-16] MEDS ORDERED: Magnesium Hydroxide 400 MG/5 ML Susp 30 ML Cup PO PRN (14:58)
[2020-10-16] MEDS: Ibuprofen 600 MG Tab PO PRN (15:50)
[2020-10-16] MEDS: Docusate Sodium 100 MG Cap PO PRN (15:50)
[2020-10-17] MEDS ORDERED: Prenatal Multivitamin with Calcium/Folic Acid/Iron Tab PO SCH (09:00)
[2020-10-17] MEDS: Ibuprofen 600 MG Tab PO PRN (09:15)
[2020-10-17] MEDS: Docusate Sodium 100 MG Cap PO PRN (09:15)
[2020-10-17 09:23] VITALS: BP 122/90; PULSE 78
--- NOTE | 2020-10-17 11:35 | PCM48HPAN ---
Post Anesthesia Note - EVALUATION WITHIN 48HRS OF ANESTHETIC Vital Signs in Normal Range: Yes Patient Participated in Evaluation: Yes Respiratory Function Stable: Yes Airway Patent: Yes Cardiovascular Function Stable: Yes Hydration Status Stable: Yes Pain Control Satisfactory: Yes Nausea and Vomiting Control Satisfactory: Yes Mental Status Recovered: Yes Vital Signs: Last Vital Signs Temp 36.2 C 10/17/20 09:13 Pulse 78 10/17/20 09:13 Resp 12 10/17/20 09:13 BP 122/90 10/17/20 09:13 Pulse Ox 99 10/17/20 09:13 - COMMENTS/OBSERVATIONS Free Text/Narrative:: no anesthesia complications noted
--- NOTE | 2020-10-17 11:40 | PCM.SN.2 ---
- Free Text/Narrative Note: Post Progress Note PPD #1 Subjective: Doing well overall. Ambulating without difficulty. Lochia minimal but reports that she is passing some blood clots with urination. Patient uncertain of exact size of the clots as the go into the toilet with urination. Voiding without difficulty. Tolerating regular diet without nausea or vomiting. Pain controlled with oral medications. Breast-feeding with minimal difficulty. Reports that she is having some increased pain with hemorrhoid and has been using Colace to try to help with soft stools. Objective: Vitals: Vital Signs - 24 hr 10/16/20 10/17/20 10/17/20 19:37 04:50 09:13 Temperature 36.7 C 36.7 C 36.2 C Pulse, 85 75 78 Peripheral Respiratory 14 14 12 Rate Blood Pressure 113/74 133/86 122/90 O2 Sat by Pulse 96 97 99 Oximetry Physical Exam General: Alert and oriented, no acute distress Lungs: Clear to auscultation bilaterally Heart: Regular rate and rhythm Abdomen: Soft, minimal appropriate tenderness, non-distended, fundus midline, nontender, and at the umbilicus Extremities: 1+ edema in bilateral lower extremities to mid shins, no calf tenderness bilaterally ASSESSMENT: 25-year-old female -0-1-3 s/p normal vaginal delivery PPD #1, complicated by obesity in PLAN: Doing well Breast-feeding with minimal difficulty. Assist as needed Lochia minimal. Continue to monitor for appropriate lochia. Continue routine care Discharge home today Amrit Carrington MD 11:39 AM 10/17/2020
--- NOTE | 2020-10-17 11:43 | PCM.DCSUM1 ---
Discharge Summary - Hospital Course Free Text/Narrative:: - General Info Date of Service: 10/16/20 Mother's Due Date: 10/15/20 - Delivery Note Labor: Spontaneous, Augmented by Oxytocin Delivery Outcome: Livebirth Infant Delivery Method: Spontaneous Vaginal Delivery-Single Presentation: Right Occiput Anterior (ANTHONY) Nuchal Cord: Present (x1) Anesthesia Type: Epidural Amniotic Fluid Description: Clear Episiotomy Type: None Laceration: Periurethral (superior abrasion, hemostatic, not repaired) Placenta: Intact, Spontaneous Cord: 3 Vessels Estimated Blood Loss: 200 Resuscitation Needed: No : Bulb Syringe, Stimulated, Warmed, [place] Used Provider: Franklyn Camarillo Score 1 min: 7 Score 5 min: 9 Second Stage Interventions: Reports: Pushing Effectively, Pushing, Stirrups/Leg Supports Delivery Comments (Free Text/Narrative):: Stage I: Lana Parker was admitted for spontaneous rupture membranes with clear fluid at home. On admission her cervix was dilated to 3. She was GBS negative. She was given an epidural for anesthesia. There was difficulty monitoring contractions with external tocometer and decision was made to place intrauterine pressure catheter. An intrauterine pressure catheter was placed without difficulty. She was started on Pitocin for augmentation of labor. She progressed to complete and pushing. Stage II: On 10/16/2020 she had a normal vaginal delivery of a live female at 14:14. Apgars of 7 & 9. Weight of 3260 g (7 lbs 3.0 oz). There was a single nuchal cord that was unable to be reduced due to precipitous delivery of the shoulders after delivery of the head. was delivered in ANTHONY position. The cord was doubly clamped and cut by father the infant. Infant was placed on mother's abdomen. Stage III: She had a spontaneous delivery of an intact placenta in [place] presentation. Three vessel cord. She was given pitocin and fundal massage. She had superior periurethral abrasion that was hemostatic and not repaired. Mom and baby were stable to recovery. EBL of 200 mL. Diagnosis: Stroke: No - Discharge Data Discharge Date: 10/17/20 Discharge Disposition: Home, Self-Care 01 Condition: Good - Referral to Home Health Primary Care Physician: Bro Santana MD - Discharge Diagnosis/Problem(s) (1) 40 weeks gestation of SNOMED Code(s): 25554192 ICD Code: Z3A.40 - 40 WEEKS GESTATION OF Status: Acute Current Visit: Yes (2) Obesity affecting SNOMED Code(s): 773853772873, 345004399334 ICD Code: O99.210 - OBESITY COMPLICATING , UNSPECIFIED TRIMESTER Status: Acute Current Visit: Yes (3) Vaginal delivery SNOMED Code(s): 902854867 ICD Code: O80 - ENCOUNTER FOR FULL-TERM UNCOMPLICATED DELIVERY Status: Acute Current Visit: Yes - Patient Summary/Data Complications: None Consults: None Hospital Course: Lana Parker was admitted for spontaneous rupture of membranes with clear fluid at home. On admission her cervix was dilated to 3 cm. She was GBS negative.she was given an epidural for anesthesia. An intrauterine pressure catheter was placed for monitoring of contractions. She was given pitocin for augmentation. She progressed to complete and began pushing. On 10/16/2020 she had a normal vaginal delivery of a live female infant at 14:14. Apgars of 7 and 9. Weight of 3260 g (7 pounds 3.0 ounces). Her course was uneventful. Her pain was well controlled and she had minimal lochia. She was ambulating, tolerating a regular diet and voiding normally. She was breast- feeding with minimal difficulty. She was afebrile and her hematocrit was 37.3 on admission. She desired to be discharged home on the morning of PPD #1. Her blood type is O+. - Patient Instructions Diet: Regular Diet as Tolerated Activity: Apply Ice, As Tolerated Activity, Other: Nothing in the vagina for 6 weeks Driving: May Drive Today Showering/Bathing: May Shower Notify Provider of: Fever, Increased Pain, Swelling and Redness, Drainage, Nausea and/or Vomiting Other/Special Instructions: Please contact your physician's office if you have heavy vaginal bleeding enough to soak a pad in less than an hour for several hours. Monitor for any signs of an infection in the breasts with severe pain or redness of the breast. - Discharge Plan *PRESCRIPTION DRUG MONITORING PROGRAM REVIEWED*: Not Applicable *COPY OF PRESCRIPTION DRUG MONITORING REPORT IN PATIENT [place]: Not Applicable Home Medications: Home Meds Docusate Sodium [Colace] 100 mg PO DAILY 10/16/20 [History] Vits #93/Iron Fum/FA [ Formula Tablet] 1 each PO DAILY 10/16/20 [History] Acetaminophen [Tylenol] 650 mg PO Q6H PRN tablet 10/17/20 [Rx] Benzocaine/Menthol [Dermoplast Pain Relief [place]] 1 spray TOP ASDIRECTED PRN canister 10/17/20 [Rx] Hydrocortisone Acetate [Anucort-HC] 25 mg RECTAL BID PRN supp 10/17/20 [Rx] Ibuprofen [Motrin] 600 mg PO Q6H PRN tablet 10/17/20 [Rx] bonita Vilchis [Tucks] 1 pad TOP ASDIRECTED PRN pad 10/17/20 [Rx] Patient Handouts: Care of a Perineal Tear, Care After Vaginal Delivery Referrals: Bro Santana MD [Primary Care Provider] - (Follow-up in 2 weeks for routine visit or earlier as needed.) - Discharge Summary/Plan Comment DC Time >30 min.: No - Patient Data Vitals - Most Recent: Last Vital Signs Temp 36.2 C 10/17/20 09:13 Pulse 78 10/17/20 09:13 Resp 12 10/17/20 09:13 BP 122/90 10/17/20 09:13 Pulse Ox 99 10/17/20 09:13 Weight - Most Recent: 118.841 kg I&O - Last 24 hours: Intake & Output 10/16/20 10/17/20 10/17/20 22:59 06:59 14:59 Intake Total 4750 Output Total 68 Balance 4682 Med Orders - Current: Current Medications Acetaminophen (Acetaminophen 325 Mg Tab) 650 mg PO Q6H PRN PRN Reason: mild pain or fever Benzocaine/Menthol (Benzocaine/Menthol 20%-0.5% [place] 56 Gm Canister) 0 gm TOP ASDIRECTED PRN PRN Reason: Perineal Comfort Measure Last Admin: 10/16/20 15:51 Dose: 1 can Documented by: Docusate Sodium (Docusate Sodium 100 Mg Cap) 100 mg PO BID PRN PRN Reason: Constipation Last Admin: 10/17/20 09:15 Dose: 100 mg Documented by: Hydrocortisone Acetate (Hydrocortisone Acetate 25 Mg Supp) 25 mg RECTAL BID PRN PRN Reason: Hemorrhoid pain Oxytocin/Lactated Ringer's (Pitocin In Lr 10 Units/1,000 Ml) 10 unit in 1,000 mls @ 100 mls/hr IV TITRATE CAROLE; Protocol Ibuprofen (Ibuprofen 600 Mg Tab) 600 mg PO Q6H PRN PRN Reason: Mild pain or fever Last Admin: 10/17/20 09:15 Dose: 600 mg Documented by: Magnesium Hydroxide (Magnesium Hydroxide 400 Mg/5 Ml Susp 30 Ml Cup) 30 ml PO BEDTIME PRN PRN Reason: Constipation Prenat Multivit/Loíza/Iron/Folic Ac ( Multivitamin With Calcium/Folic Acid/Iron Tab) 1 each PO DAILY CAROLE Last Admin: 10/17/20 09:15 Dose: 1 each Documented by: Bonita Vilchis (Bonita Vilchis Medicated Pads 40/Jar) 1 pad TOP ASDIRECTED PRN PRN Reason: Perineal Comfort Measure Last Admin: 10/16/20 15:51 Dose: 1 tub Documented by: Discontinued Medications Diphenhydramine HCl (Diphenhydramine 50 Mg/Ml Sdv) 25 mg IVPUSH Q6H PRN PRN Reason: pruritis Ephedrine Sulfate (Ephedrine 50 Mg/Ml Sdv) 5 mg IVPUSH ASDIRECTED PRN PRN Reason: Hypotension Last Admin: 10/16/20 09:19 Dose: 5 mg Documented by: Fentanyl (Fentanyl 100 Mcg/2 Ml Sdv) 100 mcg EPIDUR Q3H PRN PRN Reason: Pain Last Admin: 10/16/20 08:54 Dose: 100 mcg Documented by: Fentanyl (Fentanyl 100 Mcg/2 Ml Sdv) Confirm Administered Dose 100 mcg .ROUTE .[facility] ONE Stop: 10/16/20 08:31 Last Admin: 10/16/20 09:50 Dose: Not Given Documented by: Fentanyl/Bupivacaine HCl (Bupivacaine/Fentanyl/Ns 100 Ml Bag) 100 ml EPIDUR ASDIRECTED PRN PRN Reason: Pain Last Admin: 10/16/20 09:00 Dose: 100 ml Documented by: Lactated Ringer's (Ringers, Lactated) 1,000 mls @ 100 mls/hr IV ASDIRECTED CAROLE Last Admin: 10/16/20 08:22 Dose: 100 mls/hr Documented by: Oxytocin/Lactated Ringer's (Pitocin In Lr 10 Units/1,000 Ml) 10 unit in 1,000 mls @ 500 mls/hr IV .CONTINUOUS CAROLE Oxytocin/Lactated Ringer's (Pitocin In Lr 10 Units/1,000 Ml) 10 unit in 1,000 mls @ 12 mls/hr IV TITRATE CAROLE; Protocol Last Titration: 10/16/20 14:15 Dose: 999 munits/min, 5,994 mls/hr Documented by: Nalbuphine HCl (Nalbuphine 10 Mg/1 Ml Vial) 10 mg IVPUSH Q2H PRN PRN Reason: Pain Last Admin: 10/16/20 06:39 Dose: 10 mg Documented by: Ondansetron HCl (Ondansetron 4 Mg/2 Ml Sdv) 4 mg IVPUSH Q4H PRN PRN Reason: Nausea/Vomiting Last Admin: 10/16/20 09:09 Dose: 4 mg Documented by: Sodium Chloride (Sodium Chloride 0.9% 10 Ml Syringe) 10 ml FLUSH ASDIRECTED PRN PRN Reason: Keep Vein Open
== END 2020-10-17 15:43 | disposition home or self-care (01) | DRG 807 ==
LOC: JD.OBCHECK 04:15 → JD.OB 04:19 → JD.OBCHECK 05:10 → JD.OB 05:11 → OBSVTOIN 14:14 → JD.OB 14:15
PROVIDERS: ADMIT Obstetrics & Gynecology; ATTEND Obstetrics & Gynecology
PROC: 10E0XZZ Delivery of Products of Conception, External Approach (ICD-10-PCS; principal; 2020-10-16)
PROC: 10H07YZ Insertion of Other Device into Products of Conception, Via Natural or Artificial Opening (ICD-10-PCS; 2020-10-16)
PROC: 3E0R3BZ Introduction of Anesthetic Agent into Spinal Canal, Percutaneous Approach (ICD-10-PCS; 2020-10-16)
DX: O99.214 Obesity complicating childbirth (principal); Z37.0 Single live birth; E66.9 Obesity, unspecified; O99.62 Diseases of the digestive system complicating childbirth; K21.9 Gastro-esophageal reflux disease without esophagitis; K59.09 Other constipation; O69.81X0 Labor and delivery complicated by cord around neck, without compression, not applicable or unspecified; O62.3 Precipitate labor; Z20.822 Contact with and (suspected) exposure to COVID-19; Z3A.40 40 weeks gestation of pregnancy
CPT/HCPCS: 51702; 59025; 59409; 85025; 86592; 86803; A9270-GY; J2300; J2405; J2590; J3010; J3490; J7120; U0002

== ENCOUNTER 2022-02-04 14:31 | Emergency (ER) | payer OTHER ==
[2022-02-04] MEDS ORDERED: Proparacaine 0.5% Ophth Soln 15 ML Bottle EYELF ONE (14:40)
[2022-02-04] MEDS ORDERED: Fluorescein 1 MG Ophth Strip EYERT ONE (15:19)
[2022-02-04 16:12] VITALS: BP 118/72; PULSE 72
== END 2022-02-04 16:15 | disposition home or self-care (01) ==
LOC: JD.ED 14:31
DX: H10.32 Unspecified acute conjunctivitis, left eye (principal); S05.02XA Injury of conjunctiva and corneal abrasion without foreign body, left eye, initial encounter; Z88.0 Allergy status to penicillin
CPT/HCPCS: 99282